=== PATIENT | male | born 1975 | race Caucasian/White ===

== ENCOUNTER 2019-10-12 09:28 | Emergency (ER) | payer OTHER, SELFPAY ==
[2019-10-12 09:37] VITALS: BP 121/89; PULSE 95; RESP 16; TEMP 36.2; O2SAT 100
--- NOTE | 2019-10-12 09:56 | ED.URI ---
HPI - URI/Sore Throat General Chief Complaint: Upper Respiratory Infection Stated Complaint: cough/chest congestion/fever Time Seen by Provider: 10/12/19 09:50 Source: patient Mode of arrival: ambulatory Limitations: no limitations History of Present Illness HPI Narrative: Sukhi Blanchard is a 44 yo male with a PMH of cluster migraines who comes to express care complaining of cold symptoms including head congestion cough increasing nasal congestion and low-grade fever last night. States he is taken NyQuil and DayQuil with no improvement Related Data Home Medications Medication Instructions Recorded Confirmed amitriptyline 10/12/19 galcanezumab-gnlm [Emgality Pen] mg SUBCUT 10/12/19 hydrocortisone acetate mg ID 10/12/19 hydrocortisone-pramoxine applic 10/12/19 rizatriptan mg 10/12/19 Allergies Allergy/AdvReac Type Severity Reaction Status Date / Time Cephalosporins Allergy Mild Verified 05/09/12 16:32 clavulanic acid Allergy Mild Verified 05/09/12 16:32 Penicillins Allergy Mild Verified 05/09/12 16:32 BETALACTAMASEIN Allergy Mild Uncoded 12/11/08 14:17 ERYTHROMYCINS Allergy Mild Uncoded 12/11/08 14:17 Review of Systems Review of Systems: Narrative: CONSTITUTIONAL: Denies fever, chills, sweats. EYES: Denies visual changes, redness, discharge. ENT: Has cough, congestion, rhinorrhea, no otalgia OVASCULAR: Denies chest pain, palpitations, edema. RESPIRATORY: Denies dyspnea, wheezing, cough GASTROINTESTINAL: Denies abdominal pain, nausea, vomiting, diarrhea. GENITOURINARY: Denies dysuria, hematuria, abnormal discharge SKIN: Denies rash or itching. MUSCULOSKELETAL: Denies acute back pain, joint pain, or myalgia. NEUROLOGIC: Denies numbness, or focal weakness. PSYCHIATRIC: Denies anxiety or depression. [facility] Family History Family History (Updated 10/12/19 @ 10:00 by Autumn Farr CNP) Other No active medical problems Social History Social History (Updated 10/12/19 @ 10:01 by Autumn Farr CNP) Smoking status: Never smoker Exam Narrative: Exam Narrative: GENERAL: This is a well-nourished, well-developed patient, in mild distress. HEAD: normocephalic, atraumatic. EYES: Sclera clear/white. Vision is grossly intact. EARS: External ears normal, auditory canals clear and without drainage, TMs normal without perforation. Hearing grossly intact. NOSE: External nose normal with nasal discharge, nares with redness, has rhinorrhea. THROAT: Mucous membranes moist, posterior pharynx erythema NECK: Neck supple, non-tender without lymphadenopathy, CARDIOVASCULAR: Regular rate and rhythm without murmurs, gallops, or rubs. RESPIRATORY: Clear to auscultation. Breath sounds equal bilaterally. No wheezes, rales, or rhonchi. GASTROINTESTINAL: Abdomen soft, non-tender, nondistended. Bowel sounds are active. No hepato-splenomegaly, or palpable masses. No guarding. SKIN: warm, intact with no suspicious lesions or rash, good texture and turgor. NEURO: awake, alert, and oriented to person, place and time. There were no obvious focal neurologic abnormalities. Steady gait EXTREMITIES: Normal range of motion. No edema. BACK: Nontender without deformity Course Course Emergency Course: Flu swab negative Started on prednisone codeine cough syrup and Mucinex; already using Claritin and Zyrtec Vital Signs Vital signs: Vital Signs Temperature 97.1 F L 10/12/19 09:37 Pulse Rate 95 10/12/19 09:37 Respiratory Rate 16 10/12/19 09:37 Blood Pressure 121/89 10/12/19 09:37 Pulse Oximetry 100 10/12/19 09:37 Temperature 97.1 F L 10/12/19 09:37 Pulse Rate 95 10/12/19 09:37 Respiratory Rate 16 10/12/19 09:37 Blood Pressure 121/89 10/12/19 09:37 Pulse Oximetry 100 10/12/19 09:37 MDM - URI/Sore Throat Differential Diagnosis Differential diagnosis: Likely upper respiratory infection, sinusitis and influenza Discharge Plan Discharge Clinical Impression: Upper respiratory infection
== END 2019-10-12 10:14 | disposition home or self-care (01) ==
PROVIDERS: Emergency Provider Nurse Practitioner; PCP Physician Assistant
DX: J06.9 Acute upper respiratory infection, unspecified (principal)
CPT/HCPCS: 87804; 99213; G0463

== ENCOUNTER 2020-06-27 07:54 | Emergency (ER) | payer OTHER, SELFPAY ==
[2020-06-27] VITALS (58 sets, daily range): BP systolic 121–178; BP diastolic 66–103; PULSE 67–98; RESP 12–24; TEMP 36.7; O2SAT 96–100
--- NOTE | ~2020-06-27 | XR_ITS ---
XR chest 2V DATE: 06/27/2020 09:00 INDICATION: Left-sided chest pain, pressure. History of heart murmur. TECHNIQUE: PA and lateral views COMPARISON: None FINDINGS: No pulmonary infiltrate or consolidation, pleural effusion or pulmonary vascular congestion or pneumothorax. Normal heart size. No hilar or mediastinal enlargement. IMPRESSION: No active cardiopulmonary disease Reviewed, dictated and finalized at location A.
--- NOTE | 2020-06-27 07:56 | ECG_ITS ---
Measurements Intervals [place] Rate: 89 P: 16 IA: 143 QRS: -31 QRSD: 117 T: 27 QT: 345 QTc: 420 Interpretive Statements SINUS RHYTHM LEFT AXIS DEVIATION INTRAVENTRICULAR CONDUCTION DELAY BORDERLINE R WAVE PROGRESSION, ANTERIOR LEADS NONSPECIFIC T-WAVE ABNORMALITY- INFERIOR LEADS BASELINE ARTIFACT- I, III, AVR, AVL, AVF BORDERLINE ECG Electronically Signed On 06-27-2020 12:48:11 CDT by Deandre Ugarte D.O.
[2020-06-27 08:25] LABS: Basophils Absolute Auto 0.1 K/mm3 (0.0-0.1); Basophils Percent Auto 0.7 % (0.2-1.2); Eosinophils Absolute Auto 0.2 K/mm3 (0-0.3); Eosinophils Percent Auto 2.8 % (0-4.4); Hematocrit 45.9 % (42.0-52.0); Hemoglobin 14.6 g/dL (14.0-18.0); Immature Granulocyte Absolute 0.03 K/mm3 (0.00-0.031); Immature Granulocyte Percent A 0.4 % (0-0.5); Lymphocytes Absolute Auto 1.64 K/mm3 (0.9-3.2); Lymphocytes Percent Auto 23.8 % (18.3-44.2); Mean Corpuscular HGB Conc 31.8 g/dl (32-36); Mean Corpuscular Hemoglobin 27.2 pg (26-34); Mean Corpuscular Volume 85.5 fl (80-100); Mean Platelet Volume 9.5 fl (7.4-10.4); Monocytes Absolute Auto 0.5 K/mm3 (0.1-0.6); Monocytes Percent Auto 7.6 % (2.6-8.5); Neutrophils Absolute Auto 4.5 K/mm3 (1.3-6.7); Neutrophils Percent Auto 64.7 % (45.5-73.1); Platelet Count Result 273 k/mm3 (150-375); Red Blood Count 5.37 M/mm3 (4.6-6.20); Red Cell Distribution Width 15.1 % (11.5-14.5); White Blood Count 6.9 K/mm3 (4.5-10.0)
[2020-06-27 08:34] LABS: INR 1.1; Prothrombin Time 13.5 Seconds (11.1-14.7)
[2020-06-27 08:36] LABS: Anion Gap 9 mmol/L (8-16); Blood Urea Nitrogen 17 mg/dL (9-20); Calcium 9.1 mg/dL (8.4-10.2); Carbon Dioxide 31 mmol/L (22-30); Chloride 101 mmol/L (98-107); Estimated CRCL calculation 93 ml/min; Estimated Glomerular Filt Rate > 60; Glucose 129 mg/dL (75-110); Potassium 4.2 mmol/L (3.4-5.0); Sodium 141 mmol/L (137-145)
[2020-06-27 08:40] LABS: D Dimer 0.27 ug/mL (<0.48)
--- NOTE | 2020-06-27 08:42 | ED.CHESTPAIN ---
HPI - Chest Pain General Chief Complaint: Chest Pain Stated Complaint: Chest Pain Time Seen by Provider: 06/27/20 08:07 Source: patient Mode of arrival: ambulatory Limitations: no limitations History of Present Illness HPI narrative: 45 years old white male presents with left chest pain noticed at 5 AM after waking up from sleep. 7 out of 10. Currently 5 out of 10 Patient denies any aggravating or relieving factors, also denies any similar symptoms. Patient denies any fever, chills, nausea, vomiting, shortness of breath, back pain, headache, sore throat, exposure to anybody with COVID-19. Patient have insignificant past medical history, does not take medications at home. Patient does not smoke or drink or uses drugs. He reports some stress. Related Data Home Medications Medication Instructions Recorded Confirmed amitriptyline 10/12/19 galcanezumab-gnlm [Emgality Pen] mg SUBCUT 10/12/19 Allergies Allergy/AdvReac Type Severity Reaction Status Date / Time Cephalosporins Allergy Mild Verified 05/09/12 16:32 clavulanic acid Allergy Mild Verified 05/09/12 16:32 Penicillins Allergy Mild Verified 05/09/12 16:32 Macrolide Antibiotics Allergy Unknown Verified 06/27/20 07:58 BETALACTAMASEIN Allergy Mild Uncoded 12/11/08 14:17 ERYTHROMYCINS Allergy Mild Uncoded 12/11/08 14:17 Review of Systems Review of Systems: Narrative: CONSTITUTIONAL: Denies fever, chills, or sweats. EYES: Denies visual changes, redness, or discharge. ENT: Denies rhinorrhea, congestion, sore throat, or otalgia. CARDIOVASCULAR: Denies chest pain, palpitations, or edema. RESPIRATORY: Denies cough or dyspnea. GASTROINTESTINAL: Denies abdominal pain, nausea, vomiting, or diarrhea. GENITOURINARY: Denies dysuria or hematuria. SKIN: Denies rash or itching. MUSCULOSKELETAL: Denies back pain, joint pain, or myalgia. NEUROLOGIC: Denies headache, numbness, or weakness. PSYCHIATRIC: Denies anxiety or depression. [facility] Family History Family History Other No active medical problems Social History Social History Smoking status: Never smoker Exam Narrative: Exam Narrative: General appearance: Well-developed, well-nourished Skin: Normal color Head: Normocephalic, nontraumatic Eyes: Clear conjunctiva ENT: Oropharynx normal, ears normal, nose normal Neck: Supple, nontender Chest and respiratory: Airway patent, no respiratory distress, no accessory muscle use Heart: Regular rate/rhythm Abdomen: Soft, nontender, no organomegaly, quiet bowel sounds Vascular: Normal peripheral pulses, normal capillary refill. Musculoskeletal: Normal range of motion, nontender back Neurologic: Alert and oriented ?3, [employer] is normal as tested, no gross motor deficit Course Vital Signs Vital signs: Vital Signs Temperature 36.7 C 06/27/20 07:58 Pulse Rate 95 06/27/20 07:58 Respiratory Rate 14 06/27/20 07:58 Blood Pressure 178/103 H 06/27/20 07:58 Pulse Oximetry 99 06/27/20 07:58 Temperature 36.7 C 06/27/20 07:58 Pulse Rate 90 06/27/20 12:31 Respiratory Rate 20 06/27/20 12:31 Blood Pressure 121/98 H 06/27/20 12:31 Pulse Oximetry 100 06/27/20 12:31 MDM - Chest Pain MDM Narrative Medical decision making narrative: Patient presents with left chest pain noticed after waking up from sleep this morning. Labs, chest x-ray, D-dimer EKG ordered. Cardiac score is 1, Chest x-ray showed no acute abnormality, EKG showed no acute abnormality. D-dimer within normal limits Blood work-up within normal limit. Patient probably have chest pain could be musculoskeletal could
[2020-06-27 08:47] LABS: Troponin I < 0.012 ng/mL (0.000-0.034)
[2020-06-27 08:51] LABS: Alanine Aminotransferase 47 U/L (4-50); Albumin Level 4.4 g/dL (3.5-5.1); Alkaline Phosphatase 80 U/L (38-126); Aspartate Amino Transferase 41 U/L (17-59); Bilirubin,Total 0.7 mg/dL (0.2-1.3)
[2020-06-27 11:08] LABS: Troponin I < 0.012 ng/mL (0.000-0.034)
== END 2020-06-27 15:39 | disposition home or self-care (01) ==
PROVIDERS: Emergency Provider Emergency Medicine; PCP Physician Assistant
DX: R07.9 Chest pain, unspecified (principal); I45.9 Conduction disorder, unspecified; R94.31 Abnormal electrocardiogram [ECG] [EKG]
CPT/HCPCS: 36415; 71046; 80048; 80076; 84484; 85025; 85380; 85610; 85730; 93005; 99284

== ENCOUNTER 2024-08-26 21:49 | Emergency (ER) | payer OTHER, SELFPAY ==
[2024-08-26 21:56] VITALS: BP 151/102; PULSE 89; RESP 18; TEMP 36.8; O2SAT 99
--- NOTE | 2024-08-26 22:37 | ED.EYEPROB ---
HPI - Eye Problem General Chief complaint: Eye Problems Stated complaint: R eye pain and wanting relief for covid pain Time Seen by Provider: 08/26/24 22:21 Source: patient Mode of arrival: ambulatory Limitations: no limitations History of Present Illness HPI Narrative: This is a 49-year-old male who presents to the ED for chief complaint of bilateral eye irritation and drainage. States he was diagnosed with COVID 4 days ago. He is having body aches. He also reports increased congestion for which he is taking Sudafed. Reports dry cough. He is seeking relief for the body aches and eye irritation. Related Data Home Medications ?Medication ?Instructions ?Recorded ?Confirmed ?Last Taken ?Type amitriptyline 25 mg tablet 10/12/19 Unknown History galcanezumab-gnlm 120 mg/mL mg subcut 10/12/19 Unknown History subcutaneous pen injector (Emgality Pen) Allergies Allergy/AdvReac Type Severity Reaction Status Date / Time Cephalosporins Allergy Mild Verified 05/09/12 16:32 clavulanic acid Allergy Mild Verified 05/09/12 16:32 Penicillins Allergy Mild Verified 05/09/12 16:32 Macrolide Antibiotics Allergy Unknown Verified 06/27/20 07:58 BETALACTAMASEIN Allergy Mild Uncoded 12/11/08 14:17 ERYTHROMYCINS Allergy Mild Uncoded 12/11/08 14:17 Review of Systems Review of Systems: All systems as dictated in [facility] Family History Family History Other No active medical problems Social History Social History Smoking status: Never smoker Exam Narrative: GENERAL: Well-appearing, well-nourished, and in no acute distress. HEAD: Normocephalic, atraumatic. EYES: PERRLA and EOMI. Bilateral conjunctival injection. There is purulent drainage bilaterally. ENT: Nares clear, no rhinorrhea or epistaxis. Mucous membranes moist. Oropharynx without tonsillar hypertrophy exudate or other lesions. NECK: Supple. No adenopathy or masses. CHEST: No respiratory distress. Clear to auscultation. No wheezes rales or rhonchi HEART: Regular rate and rhythm. No murmur heard. Normal peripheral pulses. ABDOMEN: Soft, nontender, nondistended, normal active bowel sounds. MSK: Normal range of motion. No edema. SKIN: Warm, dry, no rash. NEURO: Alert and oriented x4. No focal deficits. PSYCH: Normal mood and affect. Course Vital Signs Vital signs: Vital Signs Temperature 98.2 F 08/26/24 21:56 Pulse Rate 89 08/26/24 21:56 Respiratory Rate 18 08/26/24 21:56 Blood Pressure 151/102 H 08/26/24 21:56 Pulse Oximetry 99 08/26/24 21:56 Oxygen Delivery Room Air 08/26/24 21:56 Temperature 98.2 F 08/26/24 21:56 Pulse Rate 89 08/26/24 21:56 Respiratory Rate 18 08/26/24 21:56 Blood Pressure 151/102 H 08/26/24 21:56 Pulse Oximetry 99 08/26/24 21:56 Oxygen Delivery Room Air 08/26/24 21:56 MDM - Eye Problem MDM Narrative Medical decision making narrative: This is a 49-year-old male who presents to the ED for chief complaint of bilateral eye irritation with recent COVID diagnosis. Vitals are normal. Exam remarkable for the above. Patient was given Ocuflox drops for conjunctivitis. Patient will be discharged in stable condition. Supportive measures discussed and return precautions given. Patient is understanding and agreeable with plan for discharge with PCP follow-up. Discharge Plan Discharge Clinical Impression: Conjunctivitis Patient Disposition: Home, Self-Care Condition: Stable Instructions: Antibiotic Form Additional Instructions: Your seen in the ER today for conjunctivitis. Please take Tylenol and ibuprofen for body aches. Use antibiotic drops for the conjunctivitis. If you have any new or worsening symptoms please return to the ER for further evaluation. Patient Language: Cook Islander Prescriptions: New ofloxacin [Ocuflox] 0.3 % drops See Rx Instructions .ROUTE .COMPLEX Qty: 5 0RF Rx Instructions: put 1-2 drps into affected eye(s) every 2-4 h x 2 days, then 1-2 drps 4 times/day days 3-7 Artificial Tears (cmc) 1 % drops 1 drp EACH EYE TID Qty: 15 0RF No Action amitriptyline 25 mg tablet Emgality Pen 120 mg/mL pen injector SUBCUT Follow-up/Referrals: Pedro,ANJALI Aponte [Primary Care Provider] - Time of Disposition: 22:54
[2024-08-26] MEDS: OFLOXACIN 0.3% OPHTH SOLN 5 ML BTL 1 DROP EACH EYE (23:11)
== END 2024-08-26 23:17 | disposition home or self-care (01) ==
PROVIDERS: Emergency Provider Physician Assistant; PCP Physician Assistant
DX: H10.9 Unspecified conjunctivitis (principal)
CPT/HCPCS: 99283; A9270

== ENCOUNTER 2024-08-30 17:12 | Emergency (ER) | payer OTHER, SELFPAY ==
[2024-08-30 17:25] VITALS: BP 146/88; PULSE 74; RESP 20; TEMP 36.6; O2SAT 99
--- NOTE | 2024-08-30 17:38 | ED_ITS ---
HPI - URI/Sore Throat General Chief Complaint: Upper Respiratory Infection Stated Complaint: cough,chest tightness,unable to sleep 08/23 COVID+ Time Seen by Provider: 08/30/24 17:15 Source: patient Mode of arrival: ambulatory Limitations: no limitations History of Present Illness HPI Narrative: Patient is a 49-year-old male who presents with cough and chest tightness and decreased ability to sleep due to being diagnosed with COVID 08/23. Patient has been taking [id number] medication with no relief. Denies any fever, chills, nausea, vomiting, diarrhea, sore throat, congestion, ear pain. Related Data Home Medications ?Medication ?Instructions ?Recorded ?Confirmed ?Last Taken ?Type amitriptyline 25 mg tablet 25 mg PO TID 10/12/19 08/30/24 Unknown History galcanezumab-gnlm 120 mg/mL mg subcut 10/12/19 Unknown History subcutaneous pen injector (Emgality Pen) almotriptan malate 12.5 mg tablet mg 08/30/24 Unknown History dapagliflozin propanediol 10 mg mg 08/30/24 Unknown History tablet (Farxiga) erenumab-aooe 140 mg/mL mg subcut 08/30/24 Unknown History subcutaneous auto-injector (Aimovig Autoinjector) lisinopril 2.5 mg tablet mg 08/30/24 Unknown History omeprazole 20 mg capsule,delayed mg 08/30/24 Unknown History release rosuvastatin 10 mg tablet mg 08/30/24 Unknown History semaglutide 14 mg tablet (Rybelsus) mg PO 08/30/24 Unknown History ubrogepant 50 mg tablet (Ubrelvy) mg 08/30/24 Unknown History Allergies Allergy/AdvReac Type Severity Reaction Status Date / Time Cephalosporins Allergy Mild Unknown Verified 08/30/24 17:23 clavulanic acid Allergy Mild Unknown Verified 08/30/24 17:23 Penicillins Allergy Mild Unknown Verified 08/30/24 17:23 Macrolide Antibiotics Allergy Unknown Unknown Verified 08/30/24 17:23 ERYTHROMYCINS Allergy Mild Unknown Uncoded 08/30/24 17:23 BETALACTAMASEIN Allergy Unknown Unknown Uncoded 08/30/24 17:23 Review of Systems Review of Systems: All systems reviewed & are unremarkable except as noted in HPI and below Constitutional: Constitutional: Denies body ache(s), Denies chills, Denies fatigue, Denies fever(s), Denies headache(s), Denies malaise and Denies weakness Eyes: Eyes: Denies blurry vision, Denies itchy eyes and Denies loss of vision ENT: Denies otalgia, Denies headache(s), Denies nasal congestion, Denies sinus pain and Denies sore throat Cardiovascular: Cardiovascular: Denies chest pain, Denies irregular heart rhythm and Denies dyspnea Respiratory: Respiratory: Reports chest congestion, Reports cough and Denies dyspnea Gastrointestinal: Gastrointestinal: Denies abdominal pain, Denies diarrhea, Denies nausea and Denies vomiting Musculoskeletal: Musculoskeletal: Denies back pain, Denies myalgias and Denies arthralgias Integumentary/Breasts: Skin/Breast: Denies pruritus and Denies rash Neurologic: Denies headache(s), Denies loss of vision and Denies weakness Psychiatric: Psychiatric: Reports no additional psychiatric complaints Endocrine: Endocrine: Denies fatigue Allergic/Immunologic: Allergic/Immunologic: Denies itchy eyes PMFSH Family History Family History Other No active medical problems Social History Social History Smoking status: Never smoker Comments At time of signature, agree with nursing past medical, surgical, social and family history. There is no relevant family history pertinent to the presenting complaint. Exam Const: General: cooperative, healthy appearing, comfortable, no acute distress and well nourished Nutritional Appearance: well nourished Orien tation/consciousness: patient oriented x3 Limitations: no limitations HENMT: Head: normal to inspection, normocephalic and atraumatic Ears: hearing grossly normal bilaterally, external ears normal, TM's normal bilaterally, EAC's normal and no periauricular adenopathy Face/Nose/Sinus: Normal external nose present, Abnormal mucous membranes and turbinates present erythematous bilateral and diffuse, normal facial exam, sinuses nontender and face symmetric Face and sinus: normal facial exam, sinuses nontender and face symmetric Mouth: Yes Normal oral and palatal mucosa present, Yes lip normal, Yes tongue normal, Yes Normal salivary glands and ducts present, Yes oropharynx normal and Yes moist mucous membranes Teeth and gingiva: dentition normal Throat: posterior oropharynx normal, tonsils normal and uvula midline Eyes: General: appearance normal, both eyes and all related structures Alignment and Position: alignment normal and position normal Periorbital: periorbital findings normal Eyelids: eyelids normal Pupils: Equal, round and reactive pupils present Neck: Neck: normal visual inspection, full ROM, no lymphadenopathy and supple Chest: Chest palpation & inspection: normal inspection of the chest and normal palpation of entire chest wall Resp: Effort & Inspection: normal respiratory effort and able to speak in complete sentences Auscultation: clear to auscultation bilaterally, no crackles, no rales, no rhonchi and no wheezes Cardio: Rate: regular rate Rhythm: regular rhythm Heart sounds: S1 normal heart sound present and S2 normal heart sound present GI: Inspection: normal to inspection Skin: General skin exam: normal color and no rashes or lesions noted Neuro: General: patient oriented x3 and moves all extremities Cranial nerves: Yes Equal, round and reactive pupils present Speech: normal speech Gait exam (Neuro): Normal gait present Extrem: General: normal to inspection, full ROM and no edema Psych: Appearance: grossly normal and well kempt Mental Status: mental status grossly normal Speech and movement: Normal speech and movement present Affect: normal affect Attitude: cooperative Thought process: Normal thought process present Course Course Emergency Course: Discharge instructions reviewed with patient, as well as provided in writing per nursing staff. The instructions also include specific and strict return/GO TO THE ER as well as f/u information. All questions have been answered, and the patient deny any further questions with discharge and discharge plan. Portions of this record may have been created with voice recognition software Level of Care: Express Care Visit Vital Signs Vital signs: Vital Signs Temperature 36.6 C 08/30/24 17:25 Pulse Rate 74 08/30/24 17:25 Respiratory Rate 20 08/30/24 17:25 Blood Pressure 146/88 H 08/30/24 17:25 Pulse Oximetry 99 08/30/24 17:25 Oxygen Delivery Room Air 08/30/24 17:25 Temperature 36.6 C 08/30/24 17:25 Pulse Rate 74 08/30/24 17:25 Respiratory Rate 20 08/30/24 17:25 Blood Pressure 146/88 H 08/30/24 17:25 Pulse Oximetry 99 08/30/24 17:25 Oxygen Delivery Room Air 08/30/24 17:25 Reviewed MDM - URI/Sore Throat MDM Narrative Medical decision making narrative: Pt well hydrated appearing, in no respiratory distress, hemodynamically stable. Recommend supportive care. The patient is stable at time of discharge the clinical impression was discussed and the patient was given the opportunity to ask questions, which were addressed as completely as possible given the information available at present. Anticipatory guidance and return to care precautions were discussed and the importance of primary care follow-up was stressed and encouraged. The patient voiced understanding of the plan, indications to return, and the need for follow-up. Differential diagnosis considered: [place] virus, strep pharyngitis, allergic rhinitis, upper respiratory tract infection, sinusitis, rhinosinusitis, nasopharyngitis. viral pharyngitis, otitis media, otitis externa, otitis effusion, foreign body, cerumen impaction, viral syndrome, and influenza.? Exam findings show no acute concerns or changes; patient is non-toxic appearing and is in no distress.? Patient is appropriate for outpatient treatment and follow- up.? Medical Records Attestation: I reviewed the patient's medical records. Discharge Plan Discharge Clinical Impression: COVID Patient Disposition: Home, Self-Care Condition: Stable Instructions: COVID-19 (Coronavirus Disease 2019) (ED) Additional Instructions: Use Tessalon Perles as needed for cough. Use albuterol inhaler daily. Take steroids per Dosepak The following recommendations have been made by the CDC and local Health Departments, regarding COVID-19: -wear a mask for 5 days, as long as your fever free for 24 hours you could return to work -Majority of mild to moderate cases can be treated at home, without hospitalization or prescription medications You do not need a negative test result to return to work/school, assuming the above recommendations have been met and you are not symptomatic. Treating symptoms for mild to moderate cases may include: -Alternate Tylenol and Motrin per package directions for fever or pain. -Antihistamine medication such as Benadryl/Zyrtec at night and Claritin/Ann during the day can help improve symptoms. -Use Flonase twice a day for 5 days then daily to help reduce the inflammation and dry up your sinuses. -You can also use Sudafed behind the pharmacy counter(12 or 24 hour). Be sure to drink plenty of water with these medications at least 8 ounces with every dose and it is important to drink 8 to 10 glasses of water per day. Water is a natural decongestant Take Motrin alternating with Tylenol for pain and fever alternating every 3 hours. 8 AM: Tylenol 11 AM: Ibuprofen 2 PM: Tylenol 5 PM: Ibuprofen 8 PM: Tylenol 11 PM: Ibuprofen 2 AM: Tylenol 5 AM: Ibuprofen Common Adult Symptoms: Fever/chills Cough Shortness of breath Fatigue, muscle aches Headache Loss of taste/smell Sore throat, congestion, runny nose GI symptoms (nausea, vomiting, diarrhea) Common Pediatric Symptoms Cough Fever GI symptoms (diarrhea, upset stomach, nausea, vomiting) Symptoms may differ in severity however, most cases do not require hospi talization. WHEN TO SEEK ER EVALUATION/TREATMENT: Severe/persistent shortness of breath or difficulty breathing Elevated, persistent fevers without resolution with fever-reducing medications Chest pain Extreme fatigue/lethargy Complications of pre-existing disease Patient Language: Indonesian Prescriptions: New (DME) Aerochamber MV Spacer See Rx Instructions .Route Qty: 1 0RF Rx Instructions: As directed benzonatate 100 mg capsule 100 mg PO BID PRN (Reason: cough) Qty: 14 0RF methylprednisolone [Medrol (Aubrey)] 4 mg tablets,dose pack See Rx Instructions .ROUTE .COMPLEX Qty: 21 0RF Rx Instructions: orally per package directions albuterol sulfate 90 mcg/actuation HFA aerosol inhaler 2 puff inhalation QID PRN (Reason: shortness of breath or wheezing) Qty: 6.7 0RF No Action amitriptyline 25 mg tablet 25 mg PO TID Emgality Pen 120 mg/mL pen injector SUBCUT almotriptan malate 12.5 mg tablet omeprazole 20 mg capsule,delayed release(DR/EC) lisinopril 2.5 mg tablet rosuvastatin 10 mg tablet dapagliflozin propanediol [Farxiga] 10 mg tablet Aimovig Autoinjector 140 mg/mL auto-injector SUBCUT Rybelsus 14 mg tablet PO Ubrelvy 50 mg tablet ofloxacin [Ocuflox] 0.3 % drops See Rx Instructions .ROUTE .COMPLEX Qty: 5 0RF Rx Instructions: put 1-2 drps into affected eye(s) every 2-4 h x 2 days, then 1-2 drps 4 times/day days 3-7 Follow-up/Referrals: Pedro,ANJALI Aponte [Primary Care Provider] - 3 Days Stand Alone Forms: Work/School Release IP Time of Disposition: 18:23
== END 2024-08-30 18:30 | disposition home or self-care (01) ==
PROVIDERS: Emergency Provider Nurse Practitioner Family; PCP Physician Assistant
DX: U07.1 COVID-19 (principal)
CPT/HCPCS: 99213; G0463

== ENCOUNTER 2025-01-02 15:42 | Outpatient (CLI) | payer OTHER, SELFPAY ==
--- NOTE | ~2025-01-02 | CT_ITS ---
CLINICAL INDICATION: Left upper quadrant pain COMPARISON: 05/09/2012. TECHNIQUE: Multiple contiguous axial images of the abdomen and pelvis were performed following the ad ministration of with 100 mL Omnipaque-350 intravenous contrast The dose-length product (DLP) was 1489.48 mGy-cm. Automated exposure control and iterative reconstruction technique were employed. FINDINGS/OBSERVATIONS: Visualized lower thorax: Small left-sided pleural effusion The heart is of normal size, without pericardial effusion. Small hiatal hernia is present. Liver: The liver demonstrates homogeneous enhancement and is not enlarged. Gallbladder and biliary system: The gallbladder is only minimally distended, and otherwise unremarkable. Pancreas: The pancreas enhances homogeneously without ductal dilatation. Spleen: The spleen enhances homogeneously and is not enlarged. Kidneys: A 4 mm nonobstructing calculus is identified within the lower pole of the right kidney. The remainder of the bilateral kidneys otherwise enhance symmetrically without hydronephrosis or remy tional renal calculi. Adrenal glands: Unremarkable. Gastrointestinal tract: Fecal stasis within the colon. Appendix: The appendix is not definitively visualized. However, no pericecal inflammatory change is i dentified suggest the presence of acute appendicitis. Vasculature: Unremarkable. Lymph nodes: No pathologically enlarged or morphologically suspicious lymph nodes within the retroperitoneum or at the root of the mesentery. Pelvic structures: The bladder is only minimally distended, and otherwise unremarkable. The prostate gland is not enlarged. Body wall and musculoskeletal: Small fat-containing umbilical hernia. No significant degenerative disease within the lower thoracic or lumbosacral spine. IMPRESSION: Nonobstructing right renal calculus. Small left-sided pleural effusion, likely the source of patient's left upper quadrant pain. Reviewed, dictated and finalized at location A. IMPRESSION: Nonobstructing right renal calculus. Small left-sided pleural effusion, likely the source of patient's left upper qu adrant pain.
--- OUTSIDE RECORDS SUMMARY | 2025-01-02 15:47 | XMS_ITS | Encounter Summary ---
Author Organization [employer] Address [address] [place] [address] Care Team Providers Care Award Machine Operator Name Role Phone Sloan Davis MD Primary Care Provider [phone] Encounter Details Date Type Department Care Team (Late st Contact Info) Description 11/11/2008 Outpatient Historical [facility] AND Jitendra Jones MD [address] [facility] [address] 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
--- OUTSIDE RECORDS SUMMARY | 2025-01-02 15:47 | XMS_ITS | Encounter Summary ---
Author Organization [facility] Address [address] [facility] [address] [place] [address] Care Team Providers Care Casino Supervisor Name Role Phone Sloan Davis MD Primary Care Provide r Fay Vasquez Primary Care Provider [phone]- [phone] Cathleen Lacey Unavailable [phone] Encounter Details Date Type Department Care Team (Late st Contact Info) Description 02/09/2013 Orders Only [facility] Health Information Management [address] [place] [address] Scanning, Provider Social History Tobacco Use Types Packs/Day Years Used Date Smoking Tobacco: Never Assessed Sex and Gender Information Value Date Recorded Sex Assigned at Not on file Legal Sex Male 8:22 AM OBSTETRICS SPECIALIST Gender Identity Not on file Sexual Orientation Straight 09/24/2020 8: 59 PM OBSTETRICS SPECIALIST documented as of this encounter Plan of Treatment Not on file documented as of this encounter Procedures Procedure Name Priority Date/Time Associated Diagnosis Comments GI - RESULT 02/09/2013 documented in this encounter Results * GI - RESULT (02/09/2013) Anatomical Region Laterality Modality Other us Provider Scanning Final Result documented in this encounter Visit Diagnoses Not on filedocumented in this encounter Additional Health Concerns Infection Onset Date Last Indicated Resolved Time COVID19 07/09/2020 07/09/202007/23/2020 3:07 AM OBSTETRICS SPECIALIST COVID: Recovered Comment:Added based on recent COVID infection. 07/23/2020 08/01/2020 11/20/2020 3:05 AM C DT COVID: Suspected 09/02/2021 09/02/2021 09/03/2021 6:31 AM OBSTETRICS SPECIALIST documented as of this encounter Care Teams Casino Supervisor Relationship Specialty Start Date End Date Sloan Davis MD [address] [place] [address] PCP - General 12/13/17 09/10/19 Fay Vasquze PA [address] [place] [address] PCP - General Internal Medicine 09/11/19 Cathleen Lacey PA [address] [place] [address] [address] [address] Physician Naval Designer Orthopedic Surgery 05/05/23 documented as of this encounter
--- OUTSIDE RECORDS SUMMARY | 2025-01-02 15:47 | XMS_ITS | Encounter Summary ---
Author Organization [facility] Facility Care Team Providers Care Dispatcher Service Or Work Name Role Phone Sloan Davis MD Primary Care Provide r Fay Vasquez Primary Care Provider [phone] Cathleen Lacey Unavailable [phone] Encounter Details Date Type Department Care Team (Latest Contact Info) Description 02/10/2018 Orders Only [facility] ProviderAntoinette MD [address] [place] [address] Social History Tobacco Use Types Packs/Day Years Used Date Smoking Tobacco: Never Smokeless Tobacco: Never Sex and Gender Information Value Date Recorded Sex Assigned at Not on file Legal Sex Male 8:22 AM HEALTH CARE ASSISTANT Gender Identity Not on file Sexual Orientation Straight 09/24/2020 8: 59 PM HEALTH CARE ASSISTANT documented as of this encounter Plan of Treatment Not on file documented as of this encounter Procedures Procedure Name Priority Date/Time Associated Diagnosis Comments COLONOSCOPY - SCAN 02/10/2018 12 :00 AM CDT documented in this encounter Results * COLONOSCOPY - SCAN (02/10/2018 12:00 AM CDT) Narrative 02/10/2018 12:00 AM CDT Ordered by an unspecified provider. Historical Provider Final Res ult documented in this encounter Visit Diagnoses Not on filedocumented in this encounter Additional Health Concerns Infection Onset Date Last Indicated Resolved Time COVID19 07/09/2020 07/09/2020 07/23/2020 3:07 AM HEALTH CARE ASSISTANT COVID: Recovered Comment:Added based on recent COVID infection. 07/23/2020 08/01/2020 11/20/2020 3:05 AM C DT COVID: Suspected 09/02/2021 09/02/2021 09/03/2021 6:31 AM HEALTH CARE ASSISTANT documented as of this encounter Care Teams Dispatcher Service Or Work Relationship Specialty Start Date End Date Sloan Davis MD [address] [place] [address] PCP - General 12/13/17 09/10/19 Fay Vasquez PA [address] [place] [address] PCP - General Internal Medicine 09/11/19 Cathleen Lacey PA [address] [place] [address] [address] [place] [address] Physician Big Machine Consultant Orthopedic Surgery 05/05/23 documented as of this encounter
--- OUTSIDE RECORDS SUMMARY | 2025-01-02 15:47 | XMS_ITS | Encounter Summary ---
Author Organization [employer] Address 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
--- OUTSIDE RECORDS SUMMARY | 2025-01-02 15:47 | XMS_ITS | Encounter Summary ---
Author Organization [employer] Address [address] [place] [address] Care Team Providers Care Contact Center Manager Name Role Phone Sloan Davis MD Primary Care Provider [phone]- [phone] Encounter Details Date Type Department Care Team (Late st Contact Info) Description 06/25/2005 Outpatient Historical [facility] Momo Galeas DO [address] [place] [address] Er, Authorized P NO ADDRESS ON FILE OPEN WOUND OF FINGER (Primary Dx) Social History Tobacco Use Types Packs/Day Years Used Date Smoking Tobacco: Never Assessed Sex and Gender Information Value Date Recorded Sex Assigned at Not on file Legal Sex Male 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
--- OUTSIDE RECORDS SUMMARY | 2025-01-02 15:47 | XMS_ITS | Encounter Summary ---
Author Organization [facility] Address [address] [facility] [place] [address] Care Team Providers Care Rheumatology Nurse Name Role Phone Unavailable Primary Care Provider Unavailabl e Encounter Details Date Type Department Care Team (Late st Contact Info) Description 11/12/2019 Lab Requisition [facility] [address] [place] [phone] Maria M Cooper MD [address] [place] [address] Social History Tobacco Use Types Packs/Day Years Used Date Smoking Tobacco: Never Assessed Sex and Gender Information Value Date Recorded Sex Assigned at Not on file Legal Sex Male 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 DEVELOPMENT ENGINEER Gender Identity Not on file Sexual Orientation Not on file documented as of this encounter Plan of Treatment Not on file documented as of this encounter Procedures Procedure Name Priority Date/Time Associated Diagnosis Comments DERMATOPATHOLOGY Routine 11/09/2019 12:0 0 AM CDT documented in this encounter Results * DERMATOPATHOLOGY (11/09/2019 12:00 AM CDT) Case Report Dermatopathology Report Case: [id number] Authorizing Provider: Maria M Cooper MD Collected: 11/09/2019 12:00 AM Ordering Location: [facility] Received: 11/12/2019 08:42 AM Pathologist: Nighat Lofton MD Specimen: Skin, left cheek 0 3:00 PM CDT DERMATOPATHOLOGY LABORATORY Final Diagnosis Specimen A. SKIN, left cheek: SEBORRHEIC KERATOSIS (L82.1) CHRONIC PERIFOLLICULITIS (L73.8) POST-INFLAMMATORY PIGMENT ALTERATION (L81.9) (see microscopic description) 0 3:00 PM CDT DERMATOPATHOLOGY LABORATORY Clinical History Recurrent nevus. 0 3:00 PM CDT DERMATOPATHOLOGY LABORATORY Gross Description Specimen A: Received is one formalin filled container labeled with the patient's name and designated left cheek. The specimen consists of a punch measuring [id number], bisected. Jar 0. 0 3:00 PM CDT DERMATOPATHOLOGY LABORATORY Microscopic Description Specimen A. SKIN, left cheek: Sections show an acanthotic lesion composed of relatively uniform keratinocytes. There is hyperkeratosis and pseudo horn cysts formation. In addition, there is a perifollicular lymphohistiocytic infiltrate. Abundant melanin is present within melanophages around the superficial vascular plexus. No nevus is seen in the sections examined. 0 3:00 PM CDT DERMATOPATHOLOGY LABORATORY Disclaimer An external and internal positive and negative controls are appropriate for the histochemical, immunohistochemical and immunofluorescence stain(s) in this case (if any), except where stated explicitly. The performance characteristics of the stain(s) cited in this report were developed and its performance characteristic determined by the Dermatopathology Laboratory at [facility], directed by Dr. Rebekah Lofton. These tests need not be, and therefore are not, approved by the [place] Food and Drug Administration. The tests are used for clinical purposes. Billing Codes Specimen Charges Stain Charges 39945 1 0 3:00 PM CDT DERMATOPATHOLOGY LABORATORY Embedded Images 0 3:00 PM CDT DERMATOPATHOLOGY LABORATORY Pathology/Cytolog y TISSUE SPECIMEN FROM SKIN / Unknown 11/09/2019 11/12/2019 8:42 AM CDT us Maria M Cooper MD LAB - PATHOLOGY/CYTOLOGY O RDERABLES Final Result DERMATOPATHOLOGY LABORATORY [facility] - Department of Dermatology [address] [place] [address], [address] [place] [address], [facility] [phone] documented in this encounter Visit Diagnoses Not on filedocumented in this encounter
--- OUTSIDE RECORDS SUMMARY | 2025-01-02 15:47 | XMS_ITS | Clinical Summary ---
Author Organization [facility] Address [address] [place] [address] Care Team Providers Care Green Marketing Specialist Name Role Phone Fay Vasquez Primary Care Provider [phone] Cathleen Lacey Unavailable [phone] Allergies Active Allergy Reactions Criticality Noted Date Comments Amoxicillin-Pot Clavulanate Hives,Swelling Medium 11/27 Cefaclor Hives,Swelling Medium 12/11/2012 Erythromycin Hives,Swelling Medium 12/11/2012 Penicillins Rash Medium 05/26/2024 Medications cetirizine (ZyrTEC) 5 mg tablet Take 1 tablet (5 mg total) by mouth daily Active fluocinolone in oil (DermOtic) 0.01 % dropsIndications :Otitis Externa Eczema Administer 5 drops into each ear 2 (two) times a day As needed for itching 20 mL 2 4 Active Additional Information Patient not taking.Reported on 12/28/2024 almotriptan (AXERT) 12.5 mg tabletIndication s:Chronic migraine w/o aura w/o status migrainosus, not intractable TAKE 1 TABLET BY MOUTH NEEDED FOR MIGRAINE, MAY REPEAT IN 2 HOURS IF NEEDED; MAX 2 TABLETS IN 24 HOURS 12 tablet 3 4 Active amitriptyline (ELAVIL) 25 mg tabletIndication s:Vestibular migraine Take 3 tablets (75 mg total) by mouth nightly TAKE 3 TABLETS(75 MG) BY MOUTH EVERY NIGHT 90 tablet 11 4 06/19/20 25 Active erenumab-aooe (Aimovig Autoinjector) 140 mg/mL auto-injector Inject 1 mL (140 mg total) under the skin every 30 (thirty) days 1 mL 11 4 Active ubrogepant (Ubrelvy) 50 mg tabletIndication s:Chronic migraine w/o aura w/o status migrainosus, not intractable Take 1 tablet (50 mg total) by mouth once as needed for migraine May repeat dose once in 2 hours if no relief. Do not exceed 2 doses in 24 hours. 10 tablet 11 4 06/19/20 25 Active lisinopriL (PRINIVIL,ZESTRI L) 2.5 mg tablet Take 1 tablet (2.5 mg total) by mouth daily 90 tablet 1 5 Active semaglutide (Rybelsus) 14 mg tablet Take 1 tablet (14 mg total) by mouth greenhouse assistant before breakfast 90 tablet 1 5 Active dapagliflozin propanediol (FARXIGA) 10 mg tablet Take 1 tablet (10 mg total) by mouth daily 90 tablet 1 5 Active rosuvastatin (CRESTOR) 10 mg tablet Take 1 tablet (10 mg total) by mouth daily 90 tablet 1 5 Active omeprazole (PriLOSEC) 20 mg capsuleIndicatio ns:Gastroesophag eal reflux disease without esophagitis TAKE 1 CAPSULE(20 MG) BY MOUTH DAILY BEFORE BREAKFAST 30 capsule 3 5 Active Active Problems Problem Noted Date Diagnosed Date LUQ abdominal pain 01/02/2025 Assessment & Plan (01/02/2025 3:39 PM CDT): Presents with two distinct episodes of LUQ abdominal pain radiating to the back with associated left CVA tenderness and watery diarrhea. He is tender along the LLQ and LUQ and epigastric areas with referred pain going into the RLQ. Denies alcohol use and still has his gallbladder. No fevers, chills, nausea or anorexia. Differential diagnosis includes diverticulitis, pancreatitis from GLP-1 use, kidney stone (trace blood in his urine) or musculoskeletal cause. Will plan to get STAT CT scan of abdomen/pelvis. Left flank pain 01/02/2025 Assessment & Plan (01/02/2025 3:41 PM CDT): UA showed trace blood in urine. Will culture to evaluate for infection. LLQ pain 01/02/2025 Assessment & Plan (01/02/2025 3:40 PM CDT): Presents with two distinct episodes of LUQ abdominal pain radiating to the back with associated left CVA tenderness and watery diarrhea. He is tender along the LLQ and LUQ and epigastric areas with referred pain going into the RLQ. Denies alcohol use and still has his gallbladder. No fevers, chills, nausea or anorexia. Differential diagnosis includes diverticulitis, pancreatitis from GLP-1 use, kidney stone (trace blood in his urine) or musculoskeletal cause. Will plan to get STAT CT scan of abdomen/pelvis. Decreased hearing of both ears 11/02/2023 Assessment & Plan (11/02/2023 11:31 PM PROFESSOR IN FAMILY STUDIES): Patient has noted decreased hearing in both ears over the last few years. Currently has a little bit more popping. He has had multiple infections over the years and multiple sets of tubes as a child. Currently on Flonase and antihistamine and Mucinex on and off. Will go ahead and make a referral to ENT for further evaluation. Gastric intestinal metaplasia 10/13/2023 Assessment & Plan (12/28/2024 8:15 AM CDT): Noted on pathology from EGD biopsies August 2023. -Repeat EGD August 2026 for surveillance Assessment & Plan (10/13/2023 9:14 AM PROFESSOR IN FAMILY STUDIES): Noted on pathology from EGD biopsies August 2023. -schedule EGD August 2024 for surveillance -The risks (risks of bleeding, infection, perforation requiring surgery, missed polyps/cancer, dental injury, aspiration pneumonia, anesthesia complications such as drug reaction and cardiopulmonary complications including rare chance of ), benefits, and alternatives of the planned procedure were explained to the patient who understands and consents to having procedure done. BMI 40.0-44.9, adult 04/25/2023 Assessment & Plan (09/10/2024 5:05 PM PROFESSOR IN FAMILY STUDIES): Discussed the patient's BMI. The BMI is above average. BMI management plan is completed. BMI Follow-up includes: nutrition counseling, exercise counseling and education provided. Assessment & Plan (05/09/2024 2:48 PM CDT): Discussed the patient's BMI. The BMI is above average. BMI management plan is completed. BMI Follow-up includes: nutrition counseling, exercise counseling and education provided. Assessment & Plan (11/02/2023 11:30 PM PROFESSOR IN FAMILY STUDIES): Discussed the patient's BMI. The BMI is above average. BMI management plan is completed. BMI Follow-up includes: nutrition counseling, exercise counseling and education provided. Assessment & Plan (08/04/2023 11:36 PM PROFESSOR IN FAMILY STUDIES): Discussed the patient's BMI. The BMI is above average. BMI management plan is completed. BMI Follow-up includes: nutrition counseling, exercise counseling and education provided. Assessment & Plan (05/08/2023 8:47 PM CDT): Discussed the patient's BMI. The BMI is above average. BMI management plan is completed. BMI Follow-up includes: nutrition counseling, exercise counseling and education provided. Pain in finger of left hand 02/04/2023 Overview (02/04/2023): left ring finger Ganglion cyst 02/04/2023 Morbid obesity 10/26/2022 Assessment & Plan (09/10/2024 3:23 PM PROFESSOR IN FAMILY STUDIES): Discussed the patient's BMI. The BMI is above average. BMI management plan is completed. BMI Follow-up includes: nutrition counseling, exercise counseling and education provided. Assessment & Plan (05/09/2024 2:48 PM CDT): Discussed the patient's BMI. The BMI is above average. BMI management plan is completed. BMI Follow-up includes: nutrition counseling, exercise counseling and education provided. Assessment & Plan (11/02/2023 11:30 PM PROFESSOR IN FAMILY STUDIES): Discussed the patient's BMI. The BMI is above average. BMI management plan is completed. BMI Follow-up includes: nutrition counseling, exercise counseling and education provided. Assessment & Plan (08/04/2023 11:36 PM PROFESSOR IN FAMILY STUDIES): Discussed the patient's BMI. The BMI is above average. BMI management plan is completed. BMI Follow-up includes: nutrition counseling, exercise counseling and education provided. Assessment & Plan (05/08/2023 8:49 PM CDT): Discussed the patient's BMI. The BMI is above average. BMI management plan is completed. BMI Follow-up includes: nutrition counseling, exercise counseling and education provided. Assessment & Plan (10/30/2022 5:15 PM PROFESSOR IN FAMILY STUDIES): Discussed the patient's BMI. The BMI is above average. BMI management plan is completed. BMI Follow-up includes: nutrition counseling, exercise counseling and education provided. Patient has an obesity-related condition (not limited to: hypertension, obstructive sleep apnea, osteoarthritis, hyperlipidemia, diabetes, etc.). Therefore, morbid obesity may be documented for patients with a BMI between 35.00-39.99. BMI 38.0-38.9,adult 10/26/2022 Assessment & Plan (01/02/2025 1:23 PM CDT): Discussed the patient's BMI. The BMI is above average. BMI management plan is completed. BMI Follow-up includes: nutrition counseling, exercise counseling and education provided. Assessment & Plan (10/26/2022 3:45 PM PROFESSOR IN FAMILY STUDIES): Discussed the patient's BMI. The BMI is above average. BMI management plan is completed. BMI Follow-up includes: nutrition counseling, exercise counseling and education provided. Gastroesophageal reflux disease without esophagi tis 10/25/2022 Assessment & Plan (12/28/2024 8:15 AM CDT): Chronic GERD for over 10 years, takes Pepcid OTC, however symptoms are getting progressively worse over the past few months. EGD August 2023 with irregular Z- line and gastritis. Started on omeprazole 20 mg p.o. daily and symptoms resolved. -continue omeprazole 20 mg p.o. daily -Pepcid OTC p.r.n. -RECOMMENDATIONS given include: anti-reflux maneuvers, Avoid acidic foods like oranges and tomatoes., avoidance of spicy foods, avoid eating 3-4 hours before bed, elevation of the head of the bed, and weight loss Assessment & Plan (09/10/2024 5:03 PM PROFESSOR IN FAMILY STUDIES): Continue PPI p.r.n. Assessment & Plan (11/02/2023 11:30 PM PROFESSOR IN FAMILY STUDIES): Continue PPI p.r.n. Assessment & Plan (10/13/2023 9:15 AM PROFESSOR IN FAMILY STUDIES): Chronic GERD for over 10 years, takes Pepcid OTC, however symptoms are getting progressively worse over the past few months. EGD August 2023 with irregular Z- line and gastritis. Started on omeprazole 20 mg p.o. daily and symptoms resolved. -continue omeprazole 20 mg p.o. daily -Pepcid OTC p.r.n. -RECOMMENDATIONS given include: anti-reflux maneuvers, Avoid acidic foods like oranges and tomatoes., avoidance of spicy foods, avoid eating 3-4 hours before bed, elevation of the head of the bed, and weight loss Assessment & Plan (10/25/2022 1:45 PM PROFESSOR IN FAMILY STUDIES): Chronic GERD for over 10 years, takes Pepcid OTC, however symptoms are getting progressively worse over the past few months. -start omeprazole 20 mg p.o. daily -continue Pepcid OTC p.r.n. q.h.s. -RECOMMENDATIONS given include: anti-reflux maneuvers, Avoid acidic foods like oranges and tomatoes., avoidance of spicy foods, avoid eating 3-4 hours before bed, elevation of the head of the bed, and weight loss -schedule EGD -The risks (risks of bleeding, infection, perforation requiring surgery, missed polyps/cancer, dental injury, aspiration pneumonia, anesthesia complications such as drug reaction and cardiopulmonary complications including rare chance of ), benefits, and alternatives of the planned procedure were explained to the patient who understands and consents to having procedure done. Family history of colonic polyps 10/25/2022 Assessment & Plan (12/28/2024 8:16 AM CDT): Patient's mother had a large benign polyp requiring surgical resection. Patient's paternal aunt had colon cancer. Assessment & Plan (10/13/2023 9:06 AM PROFESSOR IN FAMILY STUDIES): Patient's mother had a large benign polyp requiring surgical resection. Patient's paternal aunt had colon cancer. Assessment & Plan (10/25/2022 1:45 PM PROFESSOR IN FAMILY STUDIES): Patient's mother had a large benign polyp requiring surgical resection. Patient's paternal aunt had colon cancer. Colon polyp 06/28/2022 Assessment & Plan (12/28/2024 8:15 AM CDT): Colonoscopy by Dr. Mark Ji in January 2018 with a 3 mm hyperplastic polyp in the rectum removed with cold snare, small internal hemorrhoids, otherwise unremarkable colonoscopy. Colonoscopy August 2023 incomplete to the ascending colon due to tortuosity, multiple tubular adenomas removed, diverticulosis, and internal hemorrhoids. Subsequent barium enema was unremarkable. -repeat colonoscopy August 2026 Assessment & Plan (11/02/2023 11:30 PM PROFESSOR IN FAMILY STUDIES): History of adenomas. Colonoscopy to be repeated in August of [address] Green Assessment & Plan (10/13/2023 9:10 AM PROFESSOR IN FAMILY STUDIES): Colonoscopy by Dr. Mark Ji in January 2018 with a 3 mm hyperplastic polyp in the rectum removed with cold snare, small internal hemorrhoids, otherwise unremarkable colonoscopy. Colonoscopy August 2023 incomplete to the ascending colon due to tortuosity, multiple tubular adenomas removed, diverticulosis, and internal hemorrhoids. Subsequent barium enema was unremarkable. -repeat colonoscopy August 2026 Assessment & Plan (10/30/2022 5:14 PM PROFESSOR IN FAMILY STUDIES): History of colon polyps. Has colonoscopy scheduled in February of [address] Green Assessment & Plan (10/25/2022 1:45 PM PROFESSOR IN FAMILY STUDIES): Last colonoscopy by Dr. Mark Ji in January 2018 with a 3 mm hyperplastic polyp in the rectum removed with cold snare, small internal hemorrhoids, otherwise unremarkable colonoscopy. Also had a colonoscopy in January of [address] Herbert with small internal hemorrhoids otherwise unremarkable. -schedule colonoscopy -The risks (risks of bleeding, infection, perforation requiring surgery, missed polyps/cancer, dental injury, aspiration pneumonia, anesthesia complications such as drug reaction and cardiopulmonary complications including rare chance of ), benefits, and alternatives of the planned procedure were explained to the patient who understands and consents to having procedure done. Assessment & Plan (06/28/2022 12:48 AM CDT): 01/2018 last colonoscopy. (Due 01/2023) Repeat 5 years as Family history. Refer to Dr. Green Elevated LFTs 11/11/2021 Assessment & Plan (11/11/2021 3:13 PM CDT): Elevated LFTs. Probably related to metabolic syndrome/fatty liver. Encouraged diet exercise Type 2 diabetes mellitus with hyperlipidemia 02/2022 Assessment & Plan (09/10/2024 5:04 PM PROFESSOR IN FAMILY STUDIES): Stressed importance of continued A1c control to minimize the intermediate accountant effects of diabetes. Bring accuchecks to office when instructed to do so. Check A1c about every 3-6 months. Take medication as prescribed. Get annual eye exam. Encouraged JUAN/Statin if able to tolerate. Encouraged weight control and encouraged diabetic diet and exercise. Encouraged patient to follow low fat/low chol diet like the Mediterranean diet. Increase good fats in the diet. Increase exercise. Monitor labs as needed. Continue Crestor 10 continue right Vang's is 14 and Farxiga 10. A1c has dropped into range at 7.4. Weight continues to come down. Continue with his good work and will reassess in 6 months with repeat labs and UA IRC. Assessment & Plan (05/13/2024 9:36 PM CDT): Stressed importance of continued A1c control to minimize the intermediate accountant effects of diabetes. Bring accuchecks to office when instructed to do so. Check A1c about every 3-6 months. Take medication as prescribed. Get annual eye exam. Encouraged JUAN/Statin if able to tolerate. Encouraged weight control and encouraged diabetic diet and exercise. Encouraged patient to follow low fat/low chol diet like the Mediterranean diet. Increase good fats in the diet. Increase exercise. Monitor labs as needed. A1c is still elevated. Continue the right Vang's is at 14. Add Farxiga 10 mg. This may also help with blood pressure. Recheck labs for CMP in about 4 weeks Continue statin Assessment & Plan (11/02/2023 11:30 PM PROFESSOR IN FAMILY STUDIES): Stressed importance of continued A1c control to minimize the intermediate accountant effects of diabetes. Bring accuchecks to office when instructed to do so. Check A1c about every 3-6 months. Take medication as prescribed. Get annual eye exam. Encouraged JUAN/Statin if able to tolerate. Encouraged weight control and encouraged diabetic diet and exercise. Encouraged patient to follow low fat/low chol diet like the Mediterranean diet. Increase good fats in the diet. Increase exercise. Monitor labs as needed. Continue [id number] and Crestor Assessment & Plan (05/08/2023 8:47 PM CDT): Stressed importance of continued A1c control to minimize the longterm effects of diabetes. Bring accuchecks to office when instructed to do so. Check A1c about every 3-6 months. Take medication as prescribed. Get annual eye exam. Encouraged JUAN/Statin if able to tolerate. Encouraged weight control and encouraged diabetic diet and exercise. Doing great with the Rybelsus 14 mg daily. Continue with statin Assessment & Plan (10/30/2022 5:16 PM PROFESSOR IN FAMILY STUDIES): Encouraged patient to follow low fat/low chol diet like the Mediterranean diet. Increase good fats in the diet. Increase exercise. Monitor labs as needed. Continue Crestor. Tolerating well. Continue Rybelsus 14. A1c is well controlled. He is also had success with weight loss when he initially started it but did have an increase since last visit. Encouraged to monitor diet and exercise. Patient has not been on an JUAN-inhibitor. His blood pressure is upper normal today. Will go ahead and start lisinopril at 2.5 mg daily. Will monitor his blood pressure and if we need to titrate up for blood pressure control we can currently will dose for renal protection. Assessment & Plan (06/28/2022 12:46 AM CDT): Encouraged patient to follow low fat/low chol diet like the Mediterranean diet. Increase good fats in the diet. Increase exercise. Monitor labs as needed. Start Crestor as patient will benefit with being a diabetic Assessment & Plan (02/21/2022 8:24 PM CDT): Stressed importance of continued A1c control to minimize the intermediate accountant effects of diabetes. Bring accuchecks to office when instructed to do so. Check A1c about every 3-6 months. Take medication as prescribed. Get annual eye exam. Encouraged JUAN/Statin if able to tolerate. Encouraged weight control and encouraged diabetic diet and exercise. Tolerating right Vang's is 14. Refills available. Continue weight loss effort. Continue to monitor closely. Patient's cholesterol was in a durable raised at therefore he prefers to not be on statin. His blood pressure is also stable and prefers to not be on a an JUAN-inhibitor at this time. Reviewed benefits with diabetes. Will continue to monitor Recheck labs in about 4 months. Assessment & Plan (11/11/2021 3:12 PM CDT): New Diagnosis Diabetes. Discussed with patient at length diabetes, pathogenesis, intermediate accountant sequela, end organ damage, diet/exercise/weight loss, and medication options for treatment. Reviewed A1c, normal values, goals of treatment and need to monitor about every 90 days until well regulated. Discussed importance of annual DM eye exams. Reviewed benefits of JUAN and Statin as a diabetic. Discussed how DM affects the kidney's and ways to monitor. Reviewed increased CV risk and importance of tight control. Reviewed foot care and need to wear shoes to check feet on a regular basis to avoid intermediate accountant problems. Offered referral to investigative reporter. Start Rybelsus 3 mg x 1 month increased to 7 mg. Coupon provided. Reviewed risks, benefit, alternatives, side effects and proper use. Follow-up in 3-4 months reassess A1c. Assessment & Plan (10/05/2021 8:50 PM PROFESSOR IN FAMILY STUDIES): Encouraged patient to follow fat/low chol diet like the Mediterranean diet. Increase good fats in the diet. Increase exercise. Monitor labs as needed. Fatigue 10/05/2021 Assessment & Plan (09/10/2024 5:04 PM PROFESSOR IN FAMILY STUDIES): Probably multifactorial. Check labs and followup to re-evaluate Assessment & Plan (06/28/2022 12:46 AM CDT): Probably multifactorial. Check labs and followup to re-evaluate Assessment & Plan (10/05/2021 8:50 PM PROFESSOR IN FAMILY STUDIES): Probably multifactorial. Check labs and followup to re-evaluate Congestion of upper airway 09/02/2021 Assessment & Plan (09/02/2021 11:31 AM PROFESSOR IN FAMILY STUDIES): Patient to presume positive COVID until results are available and self isolate for 10 days from the onset of sxs. Check COVID test thru [facility] collection site in [place]. If positive, complete quarantine and consider monoclonal antibodies. If negative, treat sxs and observe. Treat sxs with Tylenol, Cough/cold medication otc and add VitD 5,000IU daily and Zinc 50mg daily. Monitor sxs and call or go to the ER if has any of the following: --trouble breathing --persistent pain or pressure in the chest --new confusion --inability to wake or stay awake -- bluish lips or face If patient has been in close contact with anyone, they should be notified and instructed to quarantine per CDC guidelines for 14 days after last exposure to the positive COVID patient and monitor closely for symptoms of COVID. If they appear they should be tested. Close contact includes: --You were within 6 feet of someone who has COVID-19 for a total of 15 minutes or more --You provided care at home to someone who is sick with COVID-19 --You had direct physical contact with the person (hugged or kissed them) --You shared eating or drinking utensils --They sneezed, coughed, or somehow got respiratory droplets on you Additional Steps to avoid exposure/spread include: Avoid crowded places where close contact with others may occur, such as shopping centers, movie theaters, dormitories, or stadiums. Avoid transit where close contact with others may occur, such as planes, trains, and buses. Maintain a distance of approximately 6 feet from other people whenever possible (spacing out if you are in a line, leaving 2 seats in between others at a waiting room when possible). Wash your hands with soap and water often. If needed, use a hand commercial collections specialist that contains at least 60% alcohol. Clean and disinfect frequently touched surfaces such as tables, doorknobs, countertops, etc daily. Avoid touching your eyes, nose, and mouth when possible. Right lateral epicondylitis 07/24/2021 Assessment & Plan (05/08/2023 8:47 PM CDT): Patient has surgical intervention scheduled with Orthopedics. Assessment & Plan (11/11/2021 3:10 PM CDT): Patient has persistent right lateral epicondylitis pain recommend referral to Orthopedics for further evaluation Assessment & Plan (07/24/2021 6:03 PM PROFESSOR IN FAMILY STUDIES): Lateral right lateral epicondylitis by exam. Encouraged icing to the area. Start NSAID. Make it a forearm band to see if helps with the symptoms. If they persist may consider physical therapy versus orthopedic referral. Encouraged to try to avoid activities that reproduce the symptoms as that may be the underlying cause. Plantar fasciitis of right foot 01/22/2021 Assessment & Plan (01/22/2021 9:50 AM CDT): Symptoms are most consistent with plantar fasciitis. His symptoms currently are somewhat improved but reviewed with him that the exercise multiple times a day icing the area stretching will all continue to help it resolve. If it returns or persists may consider referral to pole peeling machine operator. He is in agreement. Stressed importance of good she use also. Cough 07/09/2020 Chest tightness 07/09/2020 Assessment & Plan (07/09/2020 3:15 PM PROFESSOR IN FAMILY STUDIES): Will order covid 19 testing on patient - he will report to [facility] today or tomorrow before 430pm for testing. He will continue to quarantine. He will use tylenol q6h prn fever/body aches. He will report to the er if worsening. We will notify him of covid 19 testing results as available. Acute intractable headache 07/09/2020 Assessment & Plan (07/09/2020 3:15 PM PROFESSOR IN FAMILY STUDIES): Will order covid 19 testing on patient - he will report to [facility] today or tomorrow before 430pm for testing. He will continue to quarantine. He will use tylenol q6h prn fever/body aches. He will report to the er if worsening. We will notify him of covid 19 testing results as available. Need for influenza vaccination 06/09/2020 Assessment & Plan (06/28/2022 12:45 AM CDT): Flu vaccine updated today in the office Assessment & Plan (07/24/2021 6:02 PM PROFESSOR IN FAMILY STUDIES): FLU updated in the office Assessment & Plan (06/09/2020 1:35 PM CDT): Flu shot today Hordeolum externum of right upper eyelid 020 Assessment & Plan (06/09/2020 1:47 PM CDT): Advised warm compresses, baby no tears shampoo wash bid, not squeezing on it. Advised f/u in 1w if not resolving, sooner if worsening. Otalgia 06/09/2020 Assessment & Plan (06/09/2020 1:47 PM CDT): Advised antibiotic x 10 days. Advised f/u in 1w if not improving, sooner if symptoms worsen. Changing skin lesion 09/27/2019 Assessment & Plan (09/27/2019 11:12 PM PROFESSOR [employer] FAMILY [employer]): This is a significant, separately identifiable problem that was evaluated and managed on the same day as the wellness exam Refer to Derm Blood in stool 09/27/2019 Assessment & Plan (09/27/2019 11:13 PM PROF[employer]OR [employer] FAMILY [employer]): This is a significant, separately identifiable problem that was evaluated and managed on the same day as the wellness exam Refer back to GI for further evaluation. Analpram to the pharamcy to help with possible internal hemorrhoids/bleeding. Annual physical exam 09/27/2019 Assessment & Plan (11/02/2023 11:30 PM PROFESSOR IN FAMILY [employer]UDIES): Encouraged healthy lifestyle, good nutrition and exercise. Encouraged Calcium and Vitamin D and weight bearing exercise for bone health. Reviewed immunizations Reviewed age appropirate screenings. Assessment & Plan (10/30/2022 5:13 PM PROFESSOR IN FAMILY [employer]UDIES): Encouraged healthy lifestyle, good nutrition and exercise. Encouraged Calcium and Vitamin D and weight bearing exercise for bone health. Reviewed immunizations Reviewed age appropirate screenings. Assessment & Plan (10/05/2021 8:50 PM PROFESSOR [employer] FAMILY [employer]IES): Encouraged healthy lifestyle, good nutrition and exercise. Encouraged Calcium and Vitamin D and weight bearing exercise for bone health. Reviewed immunizations Reviewed age appropirate screenings. Assessment & Plan (09/29/2020 9:57 PM PROFESSOR [employer] FAMILY [employer]IES): Encouraged healthy lifestyle, good nutrition and exercise. Encouraged Calcium and Vitamin D and weight bearing exercise for bone health. Reviewed immunizations Reviewed age appropirate screenings. Assessment & Plan (09/27/2019 11:12 PM PROFESSOR IN FAMILY [employer]IES): Encouraged healthy lifestyle, good nutrition and exercise. Encouraged Calcium and Vitamin D and weight bearing exercise for bone health. Reviewed immunizations Reviewed age appropirate screenings. Vestibular migraine 07/09/2019 Assessment & Plan (10/30/2022 5:12 PM PROFESSOR IN FAMILY [employer]UDIES): Continue per Dr. Kuo, Neurology in [place] Assessment & Plan (06/28/2022 12:47 AM CDT): ANJALI Torres that he was following with at [facility] has moved [place]. He would like to try to establish with Neurology [employer] supervisor the [facility]. Will make referral to [facility] in [place]. Chronic migraine w/o aura w/ o status migrainosus, not intractable 04/11/2018 Assessment & Plan (05/08/2023 8:46 PM CDT): Headache well controlled through the neurologist. Continue [id number] mg , Amovig and amitriptyline Assessment & Plan (04/11/2018 1:42 PM CDT): - Migraine appears to be his primary underlying issue. Because of his headache component I would like him to see a migraine specialist. - I did discuss the vestibular migraine variant and handed him some literature on dietary changes that may be helpful Imbalance 02/10/2018 Assessment & Plan (02/10/2018 6:02 PM CDT): - possible problem with visual gaze and tracking - recommend vestibular testing for more objective data on the problem. Will likely consider vestibular therapy after the testing FH: colon cancer 02/09/2013 Personal history of colonic polyps 02/09/2013 Overview (06/09/2020): Overview: 02/10/18- Colonoscopy- hyperplastic rectal polyp removed. Repeat 5 years (+FH). Ear ringing 12/08/2010 Sensorineural hearing loss (SNHL) of both ears 0 12/08/2010 Assessment & Plan (05/13/2024 9:35 PM CDT): Patient has hearing aids and they are working well Assessment & Plan (04/11/2018 1:43 PM CDT): - recommend hearing test every few years or if there are additional changes - at some point he will probably benefit from hearing aids but not at the moment Assessment & Plan (02/10/2018 6:01 PM CDT): - consider hearing aid trial - discussed the hearing loss link with tinnitus Obstructive sleep apnea 09/09/2010 Resolved Problems Problem Noted Date Diagnosed Date Resolved Date Ear itching 11/15/2023 05/13/2024 Acute non-recurrent pansinusitis 08/04/2023 11/02/2023 Assessment & Plan (08/04/2023 11:36 PM PROFESSOR IN FAMILY [employer]UDIES): Start antibiotic, antihistamine (Claritin OR Zyrtec), Mucinex 12hour and Steroid nasal spray (Flonase). Push fluids. Rest. Supportive care. If sxs worsen or don\'t improve, pt is to followup in the office. Encounter for pre-operative examination 04/25/2023 11/02/2023 Assessment & Plan (05/08/2023 8:49 PM CDT): I have examined this patient and ordered the appropriate lab work/tests. I have reviewed with patient the inherent risks associated with surgery, not limited to bleeding, infection, DVT, etc. EKG was normal. Patient denies any cardiac sxs with activity. Therefore, to the best of my knowledge, there is not a medical contraindication for undergoing this elective surgery with general and/or regional anesthesia. BMI 37.0-37.9, adult 06/23/2022 023 Assessment & Plan (06/23/2022 2:28 PM CDT): Discussed the patient's BMI. The BMI is above average. BMI management plan is completed. BMI Follow-up includes: nutrition counseling, exercise counseling and education provided. Morbid obesity 06/23/2022 10/26/2022 Assessment & Plan (06/23/2022 2:28 PM CDT): Discussed the patient's BMI. The BMI is above average. BMI management plan is completed. BMI Follow-up includes: nutrition counseling, exercise counseling and education provided. BMI 40.0-44.9, adult 11/11/2021 022 Assessment & Plan (11/11/2021 2:32 PM CDT): Obesity is unchanged. Discussed the patient's BMI. The BMI is above average. BMI management plan is completed. BMI Follow-up includes: nutrition counseling, exercise counseling and education provided. Morbid obesity with BMI of 40.0-44.9, adult 11/11/2021 06/28/2022 Assessment & Plan (11/11/2021 2:32 PM CDT): Obesity is unchanged. Discussed the patient's BMI. The BMI is above average. BMI management plan is completed. BMI Follow-up includes: nutrition counseling, exercise counseling and education provided. BMI 40.0-44.9, adult 10/05/2021 Assessment & Plan (10/05/2021 4:40 PM PROFESSOR IN FAMILY [employer]IES): Obesity is unchanged. Discussed the patient's BMI. The BMI is above average. BMI management plan is completed. BMI Follow-up includes: nutrition counseling, exercise counseling and education provided. Morbid obesity with BMI of 40.0-44.9, adult 10/05/2021 11/11/2021 Assessment & Plan (10/05/2021 4:41 PM PROFESSOR IN FAMILY [employer]IES): Obesity is unchanged. Discussed the patient's BMI. The BMI is above average. BMI management plan is completed. BMI Follow-up includes: nutrition counseling, exercise counseling and education provided. Morbid obesity with BMI of 40.0-44.9, adult 07/24/2021 10/05/2021 Assessment & Plan (07/24/2021 6:03 PM PROFESSOR IN FAMILY [employer]IES): Obesity is unchanged. Discussed the patient's BMI. The BMI is above average. BMI management plan is completed. BMI Follow-up includes: nutrition counseling, exercise counseling and education provided. Morbid obesity 07/21/2021 07/24/2021 Assessment & Plan (07/21/2021 7:31 AM PROFESSOR IN FAMILY [employer]IES): Obesity is unchanged. Discussed the patient's BMI. The BMI is above average. BMI management plan is completed. BMI Follow-up includes: nutrition counseling, exercise counseling and education provided. Acute non-recurrent pansinusitis 04/17/2021 07/24/2021 Assessment & Plan (04/17/2021 4:37 PM CDT): He declines the advised covid test. He will increase water, use tylenol q6h prn fever/headache. He will report to the er if symptoms worsen this weekend. His bp is mildly elevated - he is going to monitor at home and call if running >130/80. Morbid obesity with BMI of 40.0-44.9, adult 01/22/2021 07/24/2021 Assessment & Plan (07/21/2021 7:30 AM PROFESSOR IN FAMILY [employer]UDIES): Obesity is unchanged. Discussed the patient's BMI. The BMI is above average. BMI management plan is completed. BMI Follow-up includes: nutrition counseling, exercise counseling and education provided. Assessment & Plan (04/17/2021 11:01 AM CDT): Obesity is unchanged. Discussed the patient's BMI. The BMI is above average. BMI management plan is completed. BMI Follow-up includes: nutrition counseling, exercise counseling and education provided. Assessment & Plan (01/22/2021 9:53 AM CDT): Obesity is unchanged. Discussed the patient's BMI. The BMI is above average. BMI management plan is completed. BMI Follow-up includes: nutrition counseling, exercise counseling and education provided. BMI 40.0-44.9, adult 01/06/2021 021 Assessment & Plan (01/06/2021 2:45 PM CDT): Obesity is unchanged. Discussed the patient's BMI. The BMI is above average. BMI management plan is completed. BMI Follow-up includes: nutrition counseling, exercise counseling and education provided. BMI 40.0-44.9, adult 09/29/2020 021 Assessment & Plan (09/29/2020 4:30 PM PROFESSOR IN FAMILY [employer]IES): Obesity is unchanged. Discussed the patient's BMI. The BMI is above average. BMI management plan is completed. BMI Follow-up includes: nutrition counseling, exercise counseling and education provided. Other fatigue 09/29/2020 11/11/2021 Assessment & Plan (09/29/2020 9:58 PM PROFESSOR IN FAMILY [employer]UDIES): Probably multifactorial. Check labs and followup to re-evaluate Prostate cancer screening 09/29/2020 Assessment & Plan (09/29/2020 9:58 PM PROFESSOR IN FAMILY STUDIES): Check labs Lipid screening 09/29/2020 11/11/2021 Assessment & Plan (09/29/2020 9:58 PM PROFESSOR IN FAMILY [employer]UDIES): Encouraged patient to follow fat/low chol diet like the Mediterranean diet. Increase good fats in the diet. Increase exercise. Monitor labs as needed. Pre-diabetes 09/29/2020 11/11/2021 Assessment & Plan (10/05/2021 8:50 PM PROFESSOR IN FAMILY [employer]UDIES): Pre-diabetes/hyperglycemia is a precursor to Dm. Stressed importance of working on diet (decrease your simple sugars and one carbohydrate with each meal) and increase you exercise to achieve weight loss and this will help prevent you from progressing to diabetes. Assessment & Plan (09/29/2020 9:58 PM PROFESSOR IN FAMILY STUDIES): Pre-diabetes is a precursor to Dm. Stressed importance of working on diet (decrease your simple sugars and one carbohydrate with each meal) and increase you exercise to achieve weight loss and this will help prevent you from progressing to diabetes. BMI 40.0-44.9, adult 09/26/2019 021 Assessment & Plan (06/09/2020 1:29 PM CDT): Obesity is unchanged. Discussed the patient's BMI. The BMI is above average. BMI management plan is completed. BMI Follow-up includes: nutrition counseling, exercise counseling and education provided. Assessment & Plan (09/27/2019 11:11 PM PROFESSOR IN FAMILY [employer]UDIES): Obesity is unchanged. Discussed the patient's BMI. The BMI is above average. BMI management plan is completed. BMI Follow-up includes: nutrition counseling, exercise counseling and education provided. Obesity, morbid, BMI 40.0-49.9 09/26/2019 01/06/2021 Assessment & Plan (09/29/2020 9:57 PM PROFESSOR IN FAMILY [employer]UDIES): Obesity is unchanged. Discussed the patient's BMI. The BMI is above average. BMI management plan is completed. BMI Follow-up includes: nutrition counseling, exercise counseling and education provided. Assessment & Plan (06/09/2020 1:29 PM CDT): Obesity is unchanged. Discussed the patient's BMI. The BMI is above average. BMI management plan is completed. BMI Follow-up includes: nutrition counseling, exercise counseling and education provided. Assessment & Plan (09/27/2019 11:11 PM PROFESSOR IN FAMILY [employer]UDIES): Obesity is unchanged. Discussed the patient's BMI. The BMI is above average. BMI management plan is completed. BMI Follow-up includes: nutrition counseling, exercise counseling and education provided. Encounters Date Type Department Care Team Description 01/02/2025 1:30 PM CDT Office Visit [facility] [address] [place] [address] Fay Vasquez PA LUQ abdominal pain (Primary Dx); LLQ pain; Left flank pain; Type 2 diabetes mellitus with hyperlipidemia (HCC); Fatigue, unspecified type; Screening cholesterol level; BMI 38.0-38.9,adult 12/28/2024 8:15 AM CDT Office Visit [facility] Gastroenterology at [address] [place] [address] Brandon Green MD Gastroesophageal reflux disease without esophagitis (Primary Dx); Gastric intestinal metaplasia; Colon polyp; Family history of colonic polyps from Last 3 Months Immunizations Immunization Administration Dates Next Due Influenza, Quadrivalent, Spl it, Preservative Free, Intramuscular 05/30/2023,06/23/2022,07/21/2021,06/09 Influenza, Unspecified 08/29/2024(Deferr ed: Patient Refused),05/28/2019 Tdap 09/26/2019 Surgical History Surgery Date Site/Laterality Comments [place] ENTERORRHAPHY SINGLE PERFORATION Suture Of Small Intestine - (Added by TW Conv) [place] APPENDECTOMY Appendectomy - (Added by TW Conv) MYRINGOTOMY W/ TUBES Myringotomy - With Ventilating Tube Insertion - (Added by TW Conv) APPENDECTOMY ADENOIDECTOMY W/ MYRINGOTOMY AND TUBES tubes x3 SMALL INTESTINE SURGERY 1990 CYST REMOVAL 04/08/2023 Left ELBOW SURGERY COLONOSCOPY UPPER GASTROINTESTINAL ENDOSCOPY Medical History Medical History Date Comments Seasonal allergies Sleep apnea uses CPAP Sinus disease Migraines Diabetes mellitus (HCC) GERD (gastroesophageal reflux disease) Type 2 diabetes mellitus (HCC) Colon polyp Family History Medical History Relation Name Comments Migraines Brother Colon cancer Father's Sister Alzheimer's disease Maternal Grandfather Sukhi Ferrera Prostate cancer Maternal Grandfather Sukhi Ferrera Breast cancer Maternal Grandmother Migraines Mother fatty liver Mother Hypertension Other Paternal aunt Family history of hypertension - (Added by TW Conv) Heart disease Paternal Grandfather Christopher Blanchard Lung cancer Paternal Grandmother Relation Name Status Comments Brother Father's Sister Maternal Grandfather Sukhi Ferrera Maternal Grandmother Mother Other Paternal aunt Paternal Grandfather Christopher Blanchard Paternal Grandmother Social History Tobacco Use Types Packs/Day Years Used Date Smoking Tobacco: Never Passive Smoke Exposure: Never Smokeless Tobacco: Never Tobacco Cessation:Counseling Given: Not Answered Alcohol Use Standard Drinks/Week Comments No 0 (1 standard drink = 0.6 oz pur e alcohol) AUDIT-C Answer Date Recorded Q1: How often do you have a drink containing alcohol? Never 01/02/2025 Q2: How many drinks containi ng alcohol do you have on a typical day when you are drinking? Patient does not drink Q3: How often do you have si x or more drinks on one occasion? Never 01/02/2025 PHQ-2 Answer Date Recorded PHQ-2 Total Score (If total score is 3 or more points, staff should administer the PHQ-9) 0 01/02/2025 Personal Safety Answer Date Recorded Have you ever been in or are you currently in a harmful physical or emotional relationship or is someone making you feel afraid or unsafe? 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 Not on file Not on file Not on file Obstetrics History Last Filed Vital Signs Vital Sign Reading Time Taken Comments Blood Pressure 144/98 01/02/2025 1:21 PM CDT Pulse 96 01/02/2025 1:21 PM CDT Temperature 37.2 C (99 F) 01/02/2025 1:21 PM CDT Respiratory Rate 14 09/18/2024 1:46 PM PROFESSOR [employer] FAMILY [employer] Oxygen Saturation 97% 01/02/2025 1:21 PM CDT Inhaled Oxygen Concentration - - Weight 117 kg (258 lb) 01/02/2025 1:21 PM CDT Height 175.3 cm (5' 9 ) 01/02/2025 1:21 PM CDT Body Mass Index 38.1 01/02/2025 1:21 PM CDT Plan of Treatment Health Maintenance Due Date Last Done Comments Hepatitis C Screening 1975 Foot Exam 1975 Hepatitis B Screening 1995 Pneumococcal vaccine <65 (1 of 2 - PCV) 1996 Covid-19 Vaccine (4 - 2023-2 5 season) 2024 11/27/2021, 12/22/2020, 12/01/2020 Albumin Creatinine Ratio, Urine 10/26/2024 , 10/01/2022 Regular Well Visit/Exam 18-64 11/01/2024, 10/26/2022, 10/05/2021, Additional history exists Hemoglobin A1C 03/10/2025 09/10/2024, 09/0 01/2024, 10/26/2023, Additional history exists Influenza Vaccine (Season Ended) 2025 05/30/2023, 06/23/2022, 07/21/2021, Additional history exists eGFR 06/15/2025 06/15/2024, 09/0 01/2024, 10/26/2023, Additional history exists Lipid Panel 09/10/2025 09/10/2024, 022 03/2024, 10/01/2022, Additional history exists Dilated Eye Exam 11/07/2025 11/07/2024, 11/2023, 01/07/2022 Depression Screening 01/02/2026 01/02/2025, 09/10/2024, 05/09/2024, Additional history exists Colon Cancer Screening-Colonoscopy 09/23/20262023, 02/10/2018 DTaP/Tdap/Td Vaccine (2 - Td or Tdap) 09/26/2029 09/26/2019 Procedures Procedure Name Priority Date/Time Associated Diagnosis Comments POCT URINALYSIS DIPSTICK Routine 01/02/2025 2:55 PM CDT Left flank pain HM DIABETES EYE EXAM Routine 11/07/2024 8:41 AM CDT POCT HEMOGLOBIN A1C Routine 09/10/2024 3 :34 PM [employer]OR [employer]ILY [employer] Type 2 diabetes mellitus with hyperlipidemia (HCC) POCT LIPID PANEL Routine 09/10/2024 3:30 PM PROFESSOR [employer] FAMILY [employer] Type 2 diabetes mellitus with hyperlipidemia (HCC) COMPREHENSIVE METABOLIC PANEL Routine 06/15/2024 8:52 AM CDT Type 2 diabetes mellitus with hyperlipidemia (HCC) ALBUMIN CREATININE RATIO, URINE Routine 10/26/2023 12:00 PM PROF[employer] FAMILY [employer] Type 2 diabetes mellitus with hyperlipidemia (HCC) COLONOSCOPY 09/23/2023 10:37 AM PROFESSOR [employer] FAMILY [employer]IES from Last 3 Months or Most Recently Relevant to Health Maintenance Results * (ABNORMAL) POCT urinalysis dipstick (01/02/2025 2:55 PM CDT) Glucose, ur, POC 500.(A) Negative Bilirubin, ur, POC Negative Negative Ketones, ur, POC Negative Negative Specific Medicine Bow, POC 1.025 1.003 - 1.030 Blood, ur, POC Trace(A) Negative pH, ur, POC 5.5 5.0 - 8.0 Protein, ur, POC Negative Negative Urobilinogen, urine, POC 0.2 0.2 - 1.0 mg/dL Nitrite, ur, POC Negative Negative Leukocytes, ur, POC Negative Negative Lot Number [id number] Urine 01/02/2025 2:55 PM CDT Fay ALBA POINT OF CARE TEST ORDERAB LES Edited Result - Final * DIABETES EYE EXAM (11/07/2024 8:41 AM CDT) Pathologist [facility] SCRIBED DIABETIC DILATED EYE EXAM Normal Impressions Bettina Martinez MA - 11/07/2024 8:41 AM CDT No evidence of macular edema No diabetic retinopathy was detected. Result [facility] Historical Provider HEALTH MAINTENANCE Final Result * POCT hemoglobin A1c (09/10/2024 3:34 PM PROFESSOR IN FAMILY [employer]UDIES) Pathologist [facility] Hemoglobin A1C, POC 7.4 4.0 - 5.6 % Blood 09/10/2024 3:34 PM [employer] FAMILY [employer] Result [facility] Fay ALBA POINT OF CARE TEST ORDERAB LES Final Result * (ABNORMAL) POCT lipid panel (09/10/2024 3:30 PM PROFESSOR IN FAMILY [employer]UDIES) [facility] Cholesterol, POC 115 mg/dL [facility] HDL, POC 16 mg/dL [facility] Triglycerides, POC 231 mg/dL [facility] LDL Cholesterol POC 53 mg/dL [facility] Non-HDL Cholesterol, POC 99 mg/dL [facility] Cholesterol Total, POC 7.2 mg/dL [facility] Capillary blood 09/10/2024 3 :30 PM PROFESSOR [employer] FAMILY [employer]UDIES Result [facility] Fay ALBA POINT OF CARE TEST ORDERAB LES Edited Result - Final [facility] [address] [place] [address] * (ABNORMAL) Comprehensive metabolic panel (06/15/2024 8:52 AM CDT) Glucose 138(H) 65 - 99 mg/dL [facility] Comment: Fasting reference interval For someone without known diabetes, a glucose value >125 mg/dL indicates that they may have diabetes and this should be confirmed with a follow-up test. BUN 22 7 - 25 mg/dL [facility] Creatinine 1.26 0.60 - 1.29 mg/dL [facility] eGFR 71 > OR = 60 mL/min/1.7 3m2 [facility] BUN/creat ratio SEE NOTE: 6 - 22 (calc) [facility] Comment: Not Reported: BUN and Creatinine are within reference range. Sodium 139 135 - 146 mmol/L [facility] Potassium, pl 4.3 3.5 - 5.3 mmol/L [facility] Chloride 101 98 - 110 mmol/L [facility] CO2 29 20 - 32 mmol/L [facility] Calcium 9.6 8.6 - 10.3 mg/dL [facility] Protein, sr 7.2 6.1 - 8.1 g/dL [facility] Albumin 4.6 3.6 - 5.1 g/dL [facility] GLOBULIN 2.6 1.9 - 3.7 g/dL (calc) [facility] Alb/glob ratio 1.8 1.0 - 2.5 (calc) [facility] Bilirubin, total 0.8 0.2 - 1.2 mg/dL [facility] Alk phos 75 36 - 130 U/L [facility] AST 33 10 - 40 U/L [facility] ALT (SGPT) 49(H) 9 - 46 U/L [facility] Blood 06/15/2024 8:52 AM CDT 06/15/2024 8:53 AM CDT Narrative [facility] - 06/16/2024 2:33 AM CDT FASTING:YES FASTING: YES us Fay ALBA LAB BLOOD ORDERABLES Final Result [facility] [address] [id number] * Albumin Creatinine Ratio, Urine (10/26/2023 12:00 PM PROFESS[employer] FAMILY [employer]) Creatinine, ur 151 20 - 320 mg/dL [facility] Microalbumin, ur 0.7 See Note: mg/dL [facility] Comment: Reference Range: Reference Range Not established Microalbumin/creat ratio 5 <30 mcg/mg creat [facility] Comment: The ADA defines abnormalities in albumin excretion as follows: Albuminuria Category Result (mcg/mg creatinine) Normal to Mildly increased <30 Moderately increased 30-299 Severely increased > OR = 300 The ADA recommends that at least two of three specimens collected within a 3-6 month period be abnormal before considering a patient to be within a diagnostic category. Urine 10/26/2023 12:0 0 PM [employer] FAMILY [employer] 10/26/2023 12:01 PM PROF[employer] FAMILY [employer] Narrative [facility] - 10/27/2023 1:07 PM PROFESSOR IN FAMILY [employer]IES FASTING:YES FASTING: YES Fay ALBA LAB URINE ORDERABLES Final Result [facility] [address] [phone] * COLONOSCOPY (09/23/2023 10:37 AM PROFESSOR IN FAMILY [employer]) Anatomical Region Laterality Modality Other Narrative Procedure Note Brandon Green MD - 09/23/2023 10:37 AM [facility]ST [facility] GI ENDOSCOPY Patient Name: Sukhi Blanchard Procedure Date: 09/23/2023 10:37 AM Date of : 1975 Admit Type: Outpatient Age: 48 Gender: Male Attending MD: Brandon Green M.D. Room: [facility] ENDOSCOPY ROOM 06 Note Status: Finalized Procedure: Colonoscopy Indications: High risk colon cancer surveillance: Personalhistory of colonic polyps, Family history of colon polyp Referring MD: Chip Silva.NLauri Providers: Brandon Green M.D. Medicines: Monitored Anesthesia Care Complications: No immediate complications. Estimated Blood Loss: Estimated blood loss: none. Procedure: Pre-Anesthesia Assessment: - Prior to the procedure, a History and Physicalwas performed, and patient medications and allergieswere reviewed. The risks and benefits of the procedureand the sedation options and risks were discussed withthe patient. All questions were answered and informed consent was obtained. Patient identification and proposed procedure were verified. After reviewingthe risks and benefits, the patient was deemed in satisfactory condition to undergo the procedure.The anesthesia plan was to use monitored anesthesiacare (MAC). Immediately prior to administration of medications, the patient was re-assessed foradequacy to receive sedatives. The heart rate, respiratory rate, oxygen saturations, blood pressure, adequacyof pulmonary ventilation, and response to care were monitored throughout the procedure. The physical status of the patient was re-assessed after the procedure. The benefits, risks and alternatives of theprocedure and sedation were discussed and informed consentwas obtained. All questions were answered. Please referto the signed informed consent document in the medical record. The scope was passed under direct vision.The PCF-FY649G colonoscope was introduced through theanus and advanced to the ascending colon, scope couldnot be advanced further due to tortuous colon. Thepatient tolerated the procedure well. The colonoscopy was technically difficult and complex due to a tortuous colon. Successful completion of the procedure was aided by changing the patient to a supine position. Prep was administered in a split dose. Findings: The perianal and digital rectal examinations were normal. A 10 mm polyp was found in the transverse colon. The polyp wassessile. The polyp was removed with a hot snare. Resection and retrieval were complete. Two sessile polyps were found in the splenic flexure. The polyps were10 to 15 mm in size. These polyps were removed with a hot snare.Resection and retrieval were complete. A 10 mm polyp was found in the descending colon. The polyp wassessile. The polyp was removed with a hot snare. Resection and retrieval were complete. A few small-mouthed diverticula were found in the sigmoid colon. Non-bleeding internal hemorrhoids were found during retroflexion. The hemorrhoids were small. Impression: - Incomplete colonoscopy to the ascending colonscope could not be advanced further due to tortuosity - One 10 mm polyp in the transverse colon, removed with a hot snare. Resected and retrieved. - Two 10 to 15 mm polyps at the splenic flexure, removed with a hot snare. Resected and retrieved. - One 10 mm polyp in the descending colon, removed with a hot snare. Resected and retrieved. - Diverticulosis in the sigmoid colon. - Non-bleeding internal hemorrhoids. Recommendation: - Patient has a contact number available for emergencies. The signs and symptoms of potential delayed complications were discussed with thepatient. Return to normal activities tomorrow. Written discharge instructions were provided to thepatient. - High fiber diet. - Continue present medications. - Await pathology results. - Recommend barium enema given incompletecolonoscopy, if barium enema normal repeat colonoscopy in 3years. Brandon Green M.D. Brandon Green M.D. 09/23/2023 11:58:34 AM . Number of Addenda: 0 Note Initiated On: 09/23/2023 10:37 AM Recognized by the [employer] for promoting quality in endoscopy Brandon Green MD ENDOSCOPY PROCEDURES Final Resul t from Last 3 Months or Most Recently Relevant to Health Maintenance Insurance [facility] O Care Teams Green Marketing Specialist Relationship Specialty Start Date End Date Fay Vasquez PA [address] [facility] [address] [place] [address] PCP - General Internal Medicine 09/11/19 Cathleen Lacey PA [address] [place] [address] [address] [place] [address] Physician Message Broker Developer Orthopedic Surgery 05/05/23
--- OUTSIDE RECORDS SUMMARY | 2025-01-02 15:47 | XMS_ITS | Continuity of Care Document ---
Author Organization [facility] Address [address] [place] [address] [address] [place] [address] Phone Care Team Providers Care Parks And Recreation Worker Name Role Phone Andersen OD, Herminio Unavailable Unavailable Procedures Procedure Date Office/outpatient Visit, Est Eye Exam, New Patient Advance Directives Directive Yes / No Effective Date File Name No Information Encounters Encounter Description Practice Location Reason(s) For Visit Diagnoses Date Provider Providers Copied on Encounter Office/outpat ient Visit, Est [facility], [address], [place], [place], [id number], [place] tel:[phone] [facility] No Information 2-200 9 Andersen OD Herminio. [address], [place], [place], [facility], [place]. tel:[phone] [facility], [address] [place] [address] [address], [place], [place], [id number], tel:[phone] [facility] No Information 7-200 9 Krishnasamy Albert. [address], [place], [place], [facility], [place]. tel:[phone] Family History Family Member Type Diagnosis Age At Onset No Information Payers Payer name Insurance type Covered republican ID Authoriza tion(s) No Information Social History Type Description Quantity Date Captured Comments Sex Male Smoking Status No Information Chief Complaint And Reason For Visit No Information Reason For Referral Reason For Referral No Information History Of Present Illness Encounter Date Complaint History Of Prese nt Illness No Information Functional Status Date Functional Assessmen t No Information Instructions Date Instruction Additional Infor mation No Information Assessments Type Assessment Date No Information Patient Care Teams Name Effective Dates (start - stop) Status Members No Information
--- OUTSIDE RECORDS SUMMARY | 2025-01-02 15:47 | XMS_ITS | Referral Summary ---
Author Organization [facility] Address [address] [place] [address] Care Team Providers Care Resident Hall Director Name Role Phone Fay Vasquez Primary Care Provider [phone] Cathleen Lacey Unavailable [phone] Encounters Date Type Department Care Team Description 01/02/2025 1:30 PM CDT Office Visit [facility] Family Medicine [address] [place] [address] Fay Vasquez PA LUQ abdominal pain (Primary Dx); LLQ pain; Left flank pain; Type 2 diabetes mellitus with hyperlipidemia (HCC); Fatigue, unspecified type; Screening cholesterol level; BMI 38.0-38.9,adult 12/28/2024 8:15 AM CDT Office Visit [facility] Gastroenterology at [address] [place] [address] Brandon Green MD Gastroesophageal reflux disease without esophagitis (Primary Dx); Gastric intestinal metaplasia; Colon polyp; Family history of colonic polyps from Last 3 Months Allergies Active Allergy Reactions Criticality Noted Date [...] 1 tablet (14 mg total) by mouth early head start director before breakfast 90 tablet 5 Active dapagliflozin propanediol (FARXIGA) 10 mg [...] 11/02/2023 Assessment & Plan (11/02/2023 11:31 PM DISTRIBUTOR SALES CONSULTANT): Patient has noted decreased hearing in both [...] surveillance Assessment & Plan (10/13/2023 9:14 AM DISTRIBUTOR SALES CONSULTANT): Noted on pathology from EGD biopsies August [...] 04/25/2023 Assessment & Plan (09/10/2024 5:05 PM DISTRIBUTOR SALES CONSULTANT): Discussed the patient's BMI. The BMI is above average. BMI management plan is completed. BMI Follow-up includes: nutrition counseling, exercise counseling and education provided. Assessment & Plan (05/09/2024 2:48 PM CDT): Discussed the patient's BMI. The BMI is above average. BMI management plan is completed. BMI Follow-up includes: nutrition counseling, exercise counseling and education provided. Assessment & Plan (11/02/2023 11:30 PM DISTRIBUTOR SALES CONSULTANT): Discussed the patient's BMI. The BMI is above average. BMI management plan is completed. BMI Follow-up includes: nutrition counseling, exercise counseling and education provided. Assessment & Plan (08/04/2023 11:36 PM DISTRIBUTOR SALES CONSULTANT): Discussed the patient's BMI. The BMI is [...] 10/26/2022 Assessment & Plan (09/10/2024 3:23 PM DISTRIBUTOR SALES CONSULTANT): Discussed the patient's BMI. The BMI is above average. BMI management plan is completed. BMI Follow-up includes: nutrition counseling, exercise counseling and education provided. Assessment & Plan (05/09/2024 2:48 PM CDT): Discussed the patient's BMI. The BMI is above average. BMI management plan is completed. BMI Follow-up includes: nutrition counseling, exercise counseling and education provided. Assessment & Plan (11/02/2023 11:30 PM DISTRIBUTOR SALES CONSULTANT): Discussed the patient's BMI. The BMI is above average. BMI management plan is completed. BMI Follow-up includes: nutrition counseling, exercise counseling and education provided. Assessment & Plan (08/04/2023 11:36 PM DISTRIBUTOR SALES CONSULTANT): Discussed the patient's BMI. The BMI is above average. BMI management plan is completed. BMI Follow-up includes: nutrition counseling, exercise counseling and education provided. Assessment & Plan (05/08/2023 8:49 PM CDT): Discussed the patient's BMI. The BMI is above average. BMI management plan is completed. BMI Follow-up includes: nutrition counseling, exercise counseling and education provided. Assessment & Plan (10/30/2022 5:15 PM DISTRIBUTOR SALES CONSULTANT): Discussed the patient's BMI. The BMI is [...] provided. Assessment & Plan (10/26/2022 3:45 PM DISTRIBUTOR SALES CONSULTANT): Discussed the patient's BMI. The BMI is [...] loss Assessment & Plan (09/10/2024 5:03 PM DISTRIBUTOR SALES CONSULTANT): Continue PPI p.r.n. Assessment & Plan (11/02/2023 11:30 PM DISTRIBUTOR SALES CONSULTANT): Continue PPI p.r.n. Assessment & Plan (10/13/2023 9:15 AM DISTRIBUTOR SALES CONSULTANT): Chronic GERD for over 10 years, takes [...] loss Assessment & Plan (10/25/2022 1:45 PM DISTRIBUTOR SALES CONSULTANT): Chronic GERD for over 10 years, takes [...] cancer. Assessment & Plan (10/13/2023 9:06 AM DISTRIBUTOR SALES CONSULTANT): Patient's mother had a large benign polyp requiring surgical resection. Patient's paternal aunt had colon cancer. Assessment & Plan (10/25/2022 1:45 PM DISTRIBUTOR SALES CONSULTANT): Patient's mother had a large benign polyp [...] 2026 Assessment & Plan (11/02/2023 11:30 PM DISTRIBUTOR SALES CONSULTANT): History of adenomas. Colonoscopy to be repeated in August of [address] Green Assessment & Plan (10/13/2023 9:10 AM DISTRIBUTOR SALES CONSULTANT): Colonoscopy by Dr. Mark Ji in January 2018 with a 3 mm hyperplastic polyp in the rectum removed with cold snare, small internal hemorrhoids, otherwise unremarkable colonoscopy. Colonoscopy August 2023 incomplete to the ascending colon due to tortuosity, multiple tubular adenomas removed, diverticulosis, and internal hemorrhoids. Subsequent barium enema was unremarkable. -repeat colonoscopy August 2026 Assessment & Plan (10/30/2022 5:14 PM DISTRIBUTOR SALES CONSULTANT): History of colon polyps. Has colonoscopy scheduled in February of [address] Green Assessment & Plan (10/25/2022 1:45 PM DISTRIBUTOR SALES CONSULTANT): Last colonoscopy by Dr. Mark Ji in [...] 02/2022 Assessment & Plan (09/10/2024 5:04 PM DISTRIBUTOR SALES CONSULTANT): Stressed importance of continued A1c control to minimize the group home effects of diabetes. Bring accuchecks to office [...] of continued A1c control to minimize the meterman effects of diabetes. Bring accuchecks to office [...] statin Assessment & Plan (11/02/2023 11:30 PM DISTRIBUTOR SALES CONSULTANT): Stressed importance of continued A1c control to minimize the group home effects of diabetes. Bring accuchecks to office [...] Increase exercise. Monitor labs as needed. Continue [id number] and Crestor Assessment & Plan (05/08/2023 8:47 PM CDT): Stressed importance of continued A1c control to minimize the meterman effects of diabetes. Bring accuchecks to office when instructed to do so. Check A1c about every 3-6 months. Take medication as prescribed. Get annual eye exam. Encouraged JUAN/Statin if able to tolerate. Encouraged weight control and encouraged diabetic diet and exercise. Doing great with the Rybelsus 14 mg daily. Continue with statin Assessment & Plan (10/30/2022 5:16 PM DISTRIBUTOR SALES CONSULTANT): Encouraged patient to follow low fat/low chol [...] of continued A1c control to minimize the meterman effects of diabetes. Bring accuchecks to office [...] Discussed with patient at length diabetes, pathogenesis, meterman sequela, end organ damage, diet/exercise/weight loss, and [...] feet on a regular basis to avoid group home problems. Offered referral to specimen transporter. Start Rybelsus 3 mg x 1 month increased to 7 mg. Coupon provided. Reviewed risks, benefit, alternatives, side effects and proper use. Follow-up in 3-4 months reassess A1c. Assessment & Plan (10/05/2021 8:50 PM DISTRIBUTOR SALES CONSULTANT): Encouraged patient to follow fat/low chol diet like the Mediterranean diet. Increase good fats in the diet. Increase exercise. Monitor labs as needed. Fatigue 10/05/2021 Assessment & Plan (09/10/2024 5:04 PM DISTRIBUTOR SALES CONSULTANT): Probably multifactorial. Check labs and followup to re-evaluate Assessment & Plan (06/28/2022 12:46 AM CDT): Probably multifactorial. Check labs and followup to re-evaluate Assessment & Plan (10/05/2021 8:50 PM DISTRIBUTOR SALES CONSULTANT): Probably multifactorial. Check labs and followup to re-evaluate Congestion of upper airway 09/02/2021 Assessment & Plan (09/02/2021 11:31 AM DISTRIBUTOR SALES CONSULTANT): Patient to presume positive COVID until results are available and self isolate for 10 days from the onset of sxs. Check COVID test thru [facility] collection site in [place]. If positive, complete quarantine and consider monoclonal [...] water often. If needed, use a hand roller maker that contains at least 60% alcohol. Clean [...] evaluation Assessment & Plan (07/24/2021 6:03 PM DISTRIBUTOR SALES CONSULTANT): Lateral right lateral epicondylitis by exam. Encouraged [...] returns or persists may consider referral to hims coder. He is in agreement. Stressed importance of good she use also. Cough 07/09/2020 Chest tightness 07/09/2020 Assessment & Plan (07/09/2020 3:15 PM DISTRIBUTOR SALES CONSULTANT): Will order covid 19 testing on patient - he will report to [facility] today or tomorrow before 430pm for testing. He will continue to quarantine. He will use tylenol q6h prn fever/body aches. He will report to the er if worsening. We will notify him of covid 19 testing results as available. Acute intractable headache 07/09/2020 Assessment & Plan (07/09/2020 3:15 PM DISTRIBUTOR SALES CONSULTANT): Will order covid 19 testing on patient - he will report to [facility] today or tomorrow before 430pm for testing. [...] office Assessment & Plan (07/24/2021 6:02 PM DISTRIBUTOR SALES CONSULTANT): FLU updated in the office Assessment & [...] 09/27/2019 Assessment & Plan (09/27/2019 11:12 PM DISTRIBUTOR SALES CONSULTANT): This is a significant, separately identifiable problem that was evaluated and managed on the same day as the wellness exam Refer to Derm Blood in stool 09/27/2019 Assessment & Plan (09/27/2019 11:13 PM DISTRIBUTOR SALES CONSULTANT): This is a significant, separately identifiable problem that was evaluated and managed on the same day as the wellness exam Refer back to GI for further evaluation. Analpram to the pharamcy to help with possible internal hemorrhoids/bleeding. Annual physical exam 09/27/2019 Assessment & Plan (11/02/2023 11:30 PM DISTRIBUTOR SALES CONSULTANT): Encouraged healthy lifestyle, good nutrition and exercise. Encouraged Calcium and Vitamin D and weight bearing exercise for bone health. Reviewed immunizations Reviewed age appropirate screenings. Assessment & Plan (10/30/2022 5:13 PM DISTRIBUTOR SALES CONSULTANT): Encouraged healthy lifestyle, good nutrition and exercise. Encouraged Calcium and Vitamin D and weight bearing exercise for bone health. Reviewed immunizations Reviewed age appropirate screenings. Assessment & Plan (10/05/2021 8:50 PM DISTRIBUTOR SALES CONSULTANT): Encouraged healthy lifestyle, good nutrition and exercise. Encouraged Calcium and Vitamin D and weight bearing exercise for bone health. Reviewed immunizations Reviewed age appropirate screenings. Assessment & Plan (09/29/2020 9:57 PM DISTRIBUTOR SALES CONSULTANT): Encouraged healthy lifestyle, good nutrition and exercise. Encouraged Calcium and Vitamin D and weight bearing exercise for bone health. Reviewed immunizations Reviewed age appropirate screenings. Assessment & Plan (09/27/2019 11:12 PM DISTRIBUTOR SALES CONSULTANT): Encouraged healthy lifestyle, good nutrition and exercise. Encouraged Calcium and Vitamin D and weight bearing exercise for bone health. Reviewed immunizations Reviewed age appropirate screenings. Vestibular migraine 07/09/2019 Assessment & Plan (10/30/2022 5:12 PM DISTRIBUTOR SALES CONSULTANT): Continue per Dr. Kuo, Neurology in [place] Assessment & Plan (06/28/2022 12:47 AM CDT): ANJALI Torres that he was following with at [facility] has moved [place]. He would like to try to establish with Neurology salesperson art objects the [facility] side. Will make referral to [facility] Neurology in [place]. Chronic migraine w/o aura w/ o status migrainosus, not intractable 04/11/2018 Assessment & Plan (05/08/2023 8:46 PM CDT): Headache well controlled through the neurologist. Continue [id number] mg , Amovig and amitriptyline Assessment & [...] 11/02/2023 Assessment & Plan (08/04/2023 11:36 PM DISTRIBUTOR SALES CONSULTANT): Start antibiotic, antihistamine (Claritin OR Zyrtec), Mucinex [...] and education provided. BMI 40.0-44.9, adult 10/05/2021 022 Assessment & Plan (10/05/2021 4:40 PM DISTRIBUTOR SALES CONSULTANT): Obesity is unchanged. Discussed the patient's BMI. The BMI is above average. BMI management plan is completed. BMI Follow-up includes: nutrition counseling, exercise counseling and education provided. Morbid obesity with BMI of 40.0-44.9, adult 10/05/2021 11/11/2021 Assessment & Plan (10/05/2021 4:41 PM DISTRIBUTOR SALES CONSULTANT): Obesity is unchanged. Discussed the patient's BMI. The BMI is above average. BMI management plan is completed. BMI Follow-up includes: nutrition counseling, exercise counseling and education provided. Morbid obesity with BMI of 40.0-44.9, adult 07/24/2021 10/05/2021 Assessment & Plan (07/24/2021 6:03 PM DISTRIBUTOR SALES CONSULTANT): Obesity is unchanged. Discussed the patient's BMI. The BMI is above average. BMI management plan is completed. BMI Follow-up includes: nutrition counseling, exercise counseling and education provided. Morbid obesity 07/21/2021 07/24/2021 Assessment & Plan (07/21/2021 7:31 AM DISTRIBUTOR SALES CONSULTANT): Obesity is unchanged. Discussed the patient's BMI. [...] 07/24/2021 Assessment & Plan (07/21/2021 7:30 AM DISTRIBUTOR SALES CONSULTANT): Obesity is unchanged. Discussed the patient's BMI. [...] 021 Assessment & Plan (09/29/2020 4:30 PM DISTRIBUTOR SALES CONSULTANT): Obesity is unchanged. Discussed the patient's BMI. The BMI is above average. BMI management plan is completed. BMI Follow-up includes: nutrition counseling, exercise counseling and education provided. Other fatigue 09/29/2020 11/11/2021 Assessment & Plan (09/29/2020 9:58 PM DISTRIBUTOR SALES CONSULTANT): Probably multifactorial. Check labs and followup to re-evaluate Prostate cancer screening 09/29/2020 Assessment & Plan (09/29/2020 9:58 PM DISTRIBUTOR SALES CONSULTANT): Check labs Lipid screening 09/29/2020 11/11/2021 Assessment & Plan (09/29/2020 9:58 PM DISTRIBUTOR SALES CONSULTANT): Encouraged patient to follow fat/low chol diet like the Mediterranean diet. Increase good fats in the diet. Increase exercise. Monitor labs as needed. Pre-diabetes 09/29/2020 11/11/2021 Assessment & Plan (10/05/2021 8:50 PM DISTRIBUTOR SALES CONSULTANT): Pre-diabetes/hyperglycemia is a precursor to Dm. Stressed importance of working on diet (decrease your simple sugars and one carbohydrate with each meal) and increase you exercise to achieve weight loss and this will help prevent you from progressing to diabetes. Assessment & Plan (09/29/2020 9:58 PM DISTRIBUTOR SALES CONSULTANT): Pre-diabetes is a precursor to Dm. Stressed [...] provided. Assessment & Plan (09/27/2019 11:11 PM DISTRIBUTOR SALES CONSULTANT): Obesity is unchanged. Discussed the patient's BMI. The BMI is above average. BMI management plan is completed. BMI Follow-up includes: nutrition counseling, exercise counseling and education provided. Obesity, morbid, BMI 40.0-49.9 09/26/2019 01/06/2021 Assessment & Plan (09/29/2020 9:57 PM DISTRIBUTOR SALES CONSULTANT): Obesity is unchanged. Discussed the patient's BMI. [...] provided. Assessment & Plan (09/27/2019 11:11 PM DISTRIBUTOR SALES CONSULTANT): Obesity is unchanged. Discussed the patient's BMI. The BMI is above average. BMI management plan is completed. BMI Follow-up includes: nutrition counseling, exercise counseling and education provided. 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 Not on file Not on file Not on file Last Filed Vital Signs Vital Sign Reading Time Taken Comments Blood Pressure 144/98 01/02/2025 1:21 PM CDT Pulse 96 01/02/2025 1:21 PM CDT Temperature 37.2 C (99 F) 01/02/2025 1:21 PM CDT Respiratory Rate 14 09/18/2024 1:46 PM DISTRIBUTOR SALES CONSULTANT Oxygen Saturation 97% 01/02/2025 1:21 PM CDT Inhaled Oxygen Concentration - - Weight 117 kg (258 lb) 01/02/2025 1:21 PM CDT Height 175.3 cm (5' 9 ) 01/02/2025 1:21 PM CDT Body Mass Index 38.1 01/02/2025 1:21 PM CDT Plan of Treatment Not on file Procedures Procedure Name Priority Date/Time Associated Diagnosis Comments POCT URINALYSIS DIPSTICK Routine 01/02/2025 2:55 PM CDT Left flank pain HM DIABETES EYE EXAM Routine 11/07/2024 8:41 AM CDT POCT HEMOGLOBIN A1C Routine 09/10/2024 3 :34 PM DISTRIBUTOR SALES CONSULTANT Type 2 diabetes mellitus with hyperlipidemia (HCC) POCT LIPID PANEL Routine 09/10/2024 3:30 PM DISTRIBUTOR SALES CONSULTANT Type 2 diabetes mellitus with hyperlipidemia (HCC) COMPREHENSIVE METABOLIC PANEL Routine 06/15/2024 8:52 AM CDT Type 2 diabetes mellitus with hyperlipidemia (HCC) ALBUMIN CREATININE RATIO, URINE Routine 10/26/2023 12:00 PM DISTRIBUTOR SALES CONSULTANT Type 2 diabetes mellitus with hyperlipidemia (HCC) COLONOSCOPY 09/23/2023 10:37 AM DISTRIBUTOR SALES CONSULTANT from Last 3 Months or Most Recently Relevant to Health Maintenance Results * (ABNORMAL) POCT urinalysis dipstick (01/02/2025 2:55 PM CDT) Glucose, ur, POC 500.(A) Negative Bilirubin, ur, POC Negative Negative Ketones, ur, POC Negative Negative Specific [place], POC 1.025 1.003 - 1.030 Blood, ur, POC Trace(A) Negative pH, ur, POC 5.5 5.0 - 8.0 Protein, ur, POC Negative Negative Urobilinogen, urine, POC 0.2 0.2 - 1.0 mg/dL Nitrite, ur, POC Negative Negative Leukocytes, ur, POC Negative Negative Lot Number [id number] Urine 01/02/2025 2:55 PM CDT Fay ALBA POINT OF CARE TEST ORDERAB LES Edited Result - Final * DIABETES EYE EXAM (11/07/2024 8:41 AM CDT) Pathologist [facility] SCRIBED DIABETIC DILATED EYE EXAM Normal Impressions Bettina Martinez MA - 11/07/2024 8:41 AM CDT No evidence of macular edema No diabetic retinopathy was detected. Historical Provider MD HEALTH MAINTENANCE Final Result * POCT hemoglobin A1c (09/10/2024 3:34 PM DISTRIBUTOR SALES CONSULTANT) Pathologist [facility] Hemoglobin A1C, POC 7.4 4.0 - 5.6 % Blood 09/10/2024 3:34 PM DISTRIBUTOR SALES CONSULTANT Fay ALBA POINT OF CARE TEST ORDERAB LES Final Result * (ABNORMAL) POCT lipid panel (09/10/2024 3:30 PM DISTRIBUTOR SALES CONSULTANT) [facility] Cholesterol, POC 115 mg/dL [facility] HDL, POC 16 mg/dL [facility] Triglycerides, POC 231 mg/dL [facility] LDL Cholesterol POC 53 mg/dL [facility] Non-HDL Cholesterol, POC 99 mg/dL [facility] Cholesterol Total, POC 7.2 mg/dL [facility] Capillary blood 09/10/2024 3 :30 PM DISTRIBUTOR SALES CONSULTANT Fay ALBA POINT OF CARE TEST ORDERAB LES Edited Result - Final [facility] [address] [facility] [facility] [address] [place] [address] * (ABNORMAL) Comprehensive metabolic panel (06/15/2024 8:52 AM CDT) [facility] Glucose 138(H) 65 - 99 mg/dL [facility] [...] 06/16/2024 2:33 AM CDT FASTING:YES FASTING: YES Fay ALBA LAB BLOOD ORDERABLES Final Result [facility] [address] [place] [address] * Albumin Creatinine Ratio, Urine (10/26/2023 12:00 PM DISTRIBUTOR SALES CONSULTANT) Creatinine, ur 151 20 - 320 mg/dL [...] diagnostic category. Urine 10/26/2023 12:0 0 PM DISTRIBUTOR SALES CONSULTANT 10/26/2023 12:01 PM DISTRIBUTOR SALES CONSULTANT Narrative [facility] - 10/27/2023 1:07 PM DISTRIBUTOR SALES CONSULTANT FASTING:YES FASTING: YES Fay ALBA LAB URINE ORDERABLES Final Result Performing Organization Address City/State/ZIP [place] Phone Number [facility] [address] [place] [address] * COLONOSCOPY (09/23/2023 10:37 AM DISTRIBUTOR SALES CONSULTANT) Anatomical Region Laterality Modality Other Narrative Procedure Note Brandon Green MD - 09/23/2023 10:37 AM CST [facility] GI ENDOSCOPY Patient Name: Sukhi Blanchard Procedure Date: 09/23/2023 10:37 AM Date of : 1975 Admit Type: Outpatient Age: 48 Gender: Male Attending MD: Brandon Green M.D. Room: [facility] ENDOSCOPY ROOM 06 Note Status: Finalized Procedure: Colonoscopy Indications: High risk colon cancer surveillance: Personalhistory of colonic polyps, Family history of colon polyp Referring MD: Patricio Greenfield, F.N.P. Providers: Brandon Green M.D. Medicines: Monitored Anesthesia [...] The scope was passed under direct vision.The [id number]-[id number] colonoscope was introduced through theanus and advanced [...] On: 09/23/2023 10:37 AM Recognized by the [employer] for promoting quality in endoscopy Brandon Green MD ENDOSCOPY PROCEDURES Final Resul t from Last 3 Months or Most Recently Relevant to Health Maintenance [facility] H[facility] O Care Teams Resident Hall Director Relationship Specialty Start Date End Date Fay Vasquez PA [address] [facility] [address] [place] [address] PCP - General Internal Medicine 09/11/19 Cathleen Lacey PA [address] [place] [address] [address] [place] [address] Physician Stove Polisher Orthopedic Surgery 05/05/23
--- OUTSIDE RECORDS SUMMARY | 2025-01-02 15:47 | XMS_ITS | Encounter Summary ---
Author Organization [employer] Address 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
--- OUTSIDE RECORDS SUMMARY | 2025-01-02 15:47 | XMS_ITS | Clinical Summary ---
Author Organization [employer] [facility] Address [address] [place] [address] Phone Care Team Providers Care Bean Picker Name Role Phone Sloan Corbett MD Primary Care Provider [phone] Allergies Active Allergy Reactions Criticality Noted Date Comments Amoxicillin-Pot Clavulanate Hives,Swelling High 11/27 Cefaclor Hives,Swelling High 12/11/2012 Erythromycin Hives,Swelling High 12/11/2012 Medications montelukast (SINGULAIR) 10 mg tablet Take 10 mg by mouth daily at bedtime. Active fluticasone (FLONASE) 50 mcg/spray [place], Suspension Administer 2 Sprays in each nostril daily. Active amitriptyline (ELAVIL) 25 mg tablet Take 25 mg by mouth daily at bedtime. Active loratadine (CLARITIN) 10 mg tablet Take 10 mg by mouth daily. Active galcanezumab-gn lm (EMGALITY PEN SUBCUT) Inject by subcutaneous injection. Active rizatriptan benzoate (MAXALT ORAL) Take by mouth. A ctive SUMAtriptan (IMITREX) 25 mg tablet Take 25 mg by mouth every 2 hours as needed for Other (See Comment). may repeat in 2 hours; max dose 200mg in 24 hours Active hydrocortisone acetate (ANUSOL-HC) 25 mg Suppository Insert 1 Suppository (25 mg) by rectum 2 times daily. 14 Suppository 1 10/05/19 20 Active Active Problems Problem Noted Date Diagnosed Date FH: colon cancer 02/09/2013 Personal history of colonic polyps 02/09/2013 Overview (02/14/2018): 02/10/18- Colonoscopy- hyperplastic rectal polyp removed. Repeat 5 years (+FH). 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 Gender Identity Not on file Sexual Orientation Not on file Occupation Industry Job Start Date Job End Date Not on file Not on file Not on file Not on file Last Filed Vital Signs Vital Sign Reading Time Taken Comments Blood Pressure 143/87 10/05/2019 12:42 PM DEMO COORDINATOR Pulse 97 10/05/2019 12:42 PM DEMO COORDINATOR Temperature 36.2 C (97.1 F) 02/10/2018 10:14 AM CDT Respiratory Rate 18 02/10/2018 10:35 AM CDT Oxygen Saturation 99% 02/10/2018 10:35 AM CDT Inhaled Oxygen Concentration - - Weight 124.7 kg (275 lb) 07/17/2020 2:10 PM DEMO COORDINATOR Height 175.3 cm (5' 9 ) 07/17/2020 2:10 PM DEMO COORDINATOR Body Mass Index 40.61 07/17/2020 2:10 PM DEMO COORDINATOR Plan of Treatment Health Maintenance Due Date Last Done Comments HEPATITIS B VACCINES (1 of 3 - 19+ 3-dose series) 1996 FIT-DNA Q 3 years 2022 FIT/FOBT Q 1 year 2022 Flex Sig/CT Colonography Q 5 years 2022 COLORECTAL SCREENING 02/10/2023 02/10/2018, 02/10/2018, 02/09/2013, Additional history exists Colorectal Cancer Screening 02/10/2023 INFLUENZA VACCINE (#1) 2024 06/09/2020 DTAP/TDAP/TD VACCINES (2 - T d or Tdap) 09/26/2029 09/26/2019 Procedures Procedure Name Priority Date/Time Associated Diagnosis Comments COLONOSCOPY REPORT 02/10/2018 10 :16 AM CDT from Last 3 Months or Most Recently Relevant to Health Maintenance Results * COLONOSCOPY REPORT (02/10/2018 10:16 AM CDT) Narrative Procedure Note Jitendra Ji MD - 02/10/2018 10:15 AM CDT [facility] Endoscopy Patient Name: Sukhi Blanchard Procedure Date: 02/10/2018 Date of : 1975 Admit Type: Outpatient Attending MD: Jitendra Ji MD Procedure: Colonoscopy Indications: Increased risk colon cancer surveillance: personal history of colonic polyps, family history of colon cancer Providers: Jitendra Ji MD Referring MD: Sloan Corbett MD Medicines: Monitored Anesthesia Care Complications: No immediate complications. Procedure: Informed consent was obtained for the procedure, including moderate sedation after risks were discussed. Based on the pre-procedure assessment, including review of the patient's medical history, medications, allergies, and review of systems, the patient was deemed to be an appropriate candidate for sedation. A timeout was performed. Continuous ECG monitoring, pulse oximetry, blood pressure monitoring, and direct observation were performed. The colonoscope was introduced through the anus and advanced to the cecum, identified by appendiceal orifice and ileocecal valve. The colonoscopy was performed with ease. The patient tolerated the procedure well. The quality of the bowel preparation was excellent. Estimated Blood Loss: None. Findings: Small internal hemorrhoids were found during retroflexion. A 3 mm polyp was found in the rectum. The polyp was pedunculated. The polyp was removed with a cold snare. Resection and retrieval were complete. The examination was otherwise negative with no additional polyps seen. The cecum and ileocecal valve were normal. Impression: - Small internal hemorrhoids. - One 3 mm polyp in the rectum, removed with a cold snare. Resected and retrieved. Recommendation: - Await pathology results. - Repeat colonoscopy in 5 years for screening purposes. Jitendra Ji MD 02/10/2018 10:15:07 AM This report has been signed electronically. Number of Addenda: [address]; [place] [address] Jitendra Ji MD GI PROCEDURE ORDERABLES Final Re sult from Last 3 Months or Most Recently Relevant to Health Maintenance Insurance [employer] CHOICE POS II Advance Directives For more information, please contact: [phone] * Full Code (Latest Code Status on File) Date Activated Date Inactivated Comments 02/09/2013 7:56 AM 02/09/2013 11:51 AM Care Teams Bean Picker Relationship Specialty Start Date End Date Sloan Corbett MD [address] [facility] [address] [place] [address] PCP - General Family Practice 12/22/17
--- OUTSIDE RECORDS SUMMARY | 2025-01-02 15:47 | XMS_ITS | Encounter Summary ---
Author Organization [facility] Address [address] [place] [address] Care Team Providers Care Cloth Bleaching Range Operator Chief Name Role Phone Fay Vasquez Primary Care Provider [phone] Cathleen Lacey Unavailable [phone] Reason for Referral * MRI/CAT/PET Scan (Routine) - Closed Specialty Diagnoses / Procedures Referred By Contkayla t Referred To Contact Diagnoses LUQ abdominal pain LLQ pain Procedures CT Abdomen Pelvis W Contrast Fay Vasquez PA [address] [facility] [address] [place] [address] Phone: tel: fax: External Order Referral ID Status Reason Start Date Expiration Date Visits Re quested Visits Authorized [id number] Closed 01/02/2025 02/01/2026 1 1 Reason for Visit * Reason Comments Pain Pain in left side ri bcage around towards the back . Also having diarrhea. The pain started mid November, and the diarrhea has been off and on since around the same time. Encounter Details Date Type Department Care Team (Latest Contact Info) Description 01/02/2025 1:30 PM CDT Office Visit [facility] Family Medicine [address] [facility] [place] [address] Fay Vasquez PA [address] [place] [address] LUQ abdominal pain (Primary Dx); LLQ pain; Left flank pain; Type 2 diabetes mellitus with hyperlipidemia (HCC); Fatigue, unspecified type; Screening cholesterol level; BMI 38.0-38.9,adult Social History Tobacco Use Types Packs/Day Years Used Date Smoking Tobacco: Never Passive Smoke Exposure: Never Smokeless Tobacco: Never Alcohol Use Standard Drinks/Week Comments [...] on file 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 Gender Identity Not on file Sexual Orientation Straight 09/24/2020 8: 59 PM 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 Not on file Not on file Not on file documented as of this encounter Last Filed Vital Signs Vital Sign Reading Time Taken Comments Blood Pressure 144/98 01/02/2025 1:21 PM CDT Pulse 96 01/02/2025 1:21 PM CDT Temperature 37.2 C (99 F) 01/02/2025 1:21 PM CDT Respiratory Rate - - Oxygen Saturation 97% 01/02/2025 1:21 PM CDT Inhaled Oxygen Concentration - - Weight 117 kg (258 lb) 01/02/2025 1:21 PM CDT Height 175.3 cm (5' 9 ) 01/02/2025 1:21 PM CDT Body Mass Index 38.1 01/02/2025 1:21 PM CDT documented in this encounter Functional Status * Audit-C Score Answer Date of Assessment Author 0 01/02/2025 1:22 PM CDT Beatriz Martinez MA * Question Answer Date of Assessment Author Q1: How often do you have a drink containing alcohol? Never 01/02/2025 1:22 PM CDT Bettina Martinez M A Q2: How many drinks containing alcohol do you have on a typical day when you are drinking? Patient does not drink 01/02/2025 1:22 PM CDT Bettina Martinez MA Q3: How often do you have six or more drinks on one occasion? Never 01/02/2025 1:22 PM CDT Bettina Martinez M A documented as of this encounter Miscellaneous Notes * Assessment & Plan Note - Minoo Hernandez - 01/02/2025 3:41 PM CDT Associated Problem(s): Left flank pain UA showed trace blood in urine. Will culture to evaluate for infection. * Assessment & Plan Note - Minoo Hernandez - 01/02/2025 3:40 PM CDT Associated Problem(s): LLQ pain Presents with two distinct episodes of LUQ abdominal pain radiating to the back with associated left CVA tenderness and watery diarrhea. He is tender along the LLQ and LUQ and epigastric areas with referred pain going into the RLQ. Denies alcohol use and still has his gallbladder. No fevers, chills, nausea or anorexia. Differential diagnosis includes diverticulitis, pancreatitis from GLP- 1 use, kidney stone (trace blood in his urine) or musculoskeletal cause. Will plan to get STAT CT scan of abdomen/pelvis. * Assessment & Plan Note - Minoo Hernandez - 01/02/2025 3:38 PM CDT Associated Problem(s): LUQ abdominal pain Presents with two distinct episodes of LUQ abdominal pain radiating to the back with associated left CVA tenderness and watery diarrhea. He is tender along the LLQ and LUQ and epigastric areas with referred pain going into the RLQ. Denies alcohol use and still has his gallbladder. No fevers, chills, nausea or anorexia. Differential diagnosis includes diverticulitis, pancreatitis from GLP- 1 use, kidney stone (trace blood in his urine) or musculoskeletal cause. Will plan to get STAT CT scan of abdomen/pelvis. * Assessment & Plan Note - Bettina Martinez MA - 01/02/2025 1:23 PM CDTAssociated Problem(s): BMI 38.0-38.9,adult Discussed the patient's BMI. The BMI is above average. BMI management plan is completed. BMI Follow-up includes: nutrition counseling, exercise counseling and education provided. documented in this encounter Plan of Treatment Scheduled Orders Name Type Priority Associated Diagnoses Orde r Schedule CT Abdomen Pelvis W Contrast Imaging Schedule ANSHU, Read ANSHU (Appt Today, Awaiting Results) LUQ abdominal pain LLQ pain Expected: 01/02/2025, Expires: 01/02/2026 CBC with auto differential Lab Routine LUQ abdominal pain Expected: 01/02/2025, Expires: 01/02/2026 Comprehensive metabolic panel Lab Routine LUQ abdominal pain Expected: 01/02/2025, Expires: 01/02/2026 Lipase Lab Routine LUQ abdominal pain Expected: 01/05/2025, Expires: 01/02/2026 Amylase Lab Routine LUQ abdominal pain Expected: 01/05/2025, Expires: 01/02/2026 Hemoglobin A1c Lab Routine Type 2 diabetes mellitus with hyperlipidemia (HCC) Expected: 01/02/2025, Expires: 01/02/2026 Lipid panel Lab Routine Screening cholesterol level Expected: 01/02/2025, Expires: 01/02/2026 Albumin Creatinine Ratio, Urine Lab Routine Type 2 diabetes mellitus with hyperlipidemia (HCC) Expected: 01/02/2025, Expires: 01/02/2026 TSH Lab Routine Fatigue, unspecified type Expected: 01/02/2025, Expires: 01/02/2026 Urine culture Urine, clean voided Microbiology Routine Left flank pain Expected: 01/02/2025, Expires: 01/02/2026 documented as of this encounter Procedures Procedure Name Priority Date/Time Associated Diagnosis Comments POCT URINALYSIS DIPSTICK Routine 01/02/2025 2:55 PM CDT Left flank pain documented in this encounter Results * (ABNORMAL) POCT urinalysis dipstick (01/02/2025 2:55 PM CDT) Glucose, ur, POC 500.(A) Negative Bilirubin, ur, POC Negative Negative Ketones, ur, POC Negative Negative Specific [place], POC 1.025 1.003 - 1.030 Blood, ur, POC Trace(A) Negative pH, ur, POC 5.5 5.0 - 8.0 Protein, ur, POC Negative Negative Urobilinogen, urine, POC 0.2 0.2 - 1.0 mg/dL Nitrite, ur, POC Negative Negative Leukocytes, ur, POC Negative Negative Lot Number [id number] Urine 01/02/2025 2:55 PM CDT Fay ALBA POINT OF CARE TEST ORDERAB LES Edited Result - Final documented in this encounter Visit Diagnoses Diagnosis LUQ abdominal pain- Primary Abdominal pain, left upper quadrant LLQ pain Abdominal pain, left lower quadrant Left flank pain Abdominal pain, unspecified site Type 2 diabetes mellitus with hyperlipidemia (HCC) Fatigue, unspecified type Screening cholesterol level Screening for lipoid disorders BMI 38.0-38.9,adult documented in this encounter Care Teams Cloth Bleaching Range Operator Chief Relationship Specialty Start Date End Date Fay Vasquez PA [address] [place] [address] PCP - General Internal Medicine 09/11/19 Cathleen Lacey PA [address] [place] [address] Physician Price Lister Orthopedic Surgery 05/05/23 documented as of this encounter
--- OUTSIDE RECORDS SUMMARY | 2025-01-02 15:47 | XMS_ITS | Encounter Summary ---
Author Organization [facility] Address 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
--- OUTSIDE RECORDS SUMMARY | 2025-01-02 15:47 | XMS_ITS | Clinical Summary ---
Author Organization [facility] Address [address] [place] [address] Care Team Providers Care Carpenter'S Helper Name Role Phone Unavailable Primary Care Provider Unavailabl e Source Comments [facility],non-owned Affiliates and Associated Physician Practices is amultiple site organization consisting of ambulatory clinics and hospital sitesin [place], [place], [place]. This disclosure is being madepursuant to the Care Everywhere program and may not contain all information available regarding this patient. 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 Gender Identity Not on file Sexual Orientation Not on file Plan of Treatment Health Maintenance Due Date Last Done Comments COLOGUARD (AGES 45-75) - COL ON CA SCREENING 1975 COLON MONITORING 1977 COLONOSCOPY - COLON CA SCREENING 1977 CT COLONOGRAPHY - COLON CA SCREENING 1975 Colorectal Cancer Screening 1977 FIT - COLON CA SCREENING 1977 FLEX SIG - COLON CA SCREENING 1977 LIPID TESTING 1977 HIV SCREENING 1992 HEPATITIS C SCREENING 05/03/1995 DTAP/TDAP/TD VACCINES (1 - Tdap) 1996 HEPATITIS B VACCINE (1 of 3 - 19+ 3-dose series) 1996 COVID-19 VACCINE ( - 2023-2 5 season) 2024 DEPRESSION SCREENING 08/29/2024 INFLUENZA VACCINE (Season Ended) 2025 ZOSTER VACCINE (1 of 2) 2027 HIB VACCINE Aged Out No longer eligi ble based on patient's age to complete this topic HPV VACCINE Aged Out No longer eligi ble based on patient's age to complete this topic MENINGOCOCCAL (Group B) VACC INE SHARED DECISION-MAKING Aged Out No longer eligibl e based on patient's age to complete this topic MENINGOCOCCAL GROUPS A/C/Y/W VACCINE Aged Out No longer eligible b ased on patient's age to complete this topic PNEUMOCOCCAL VACCINE Aged Out No long er eligible based on patient's age to complete this topic Insurance [employer]
[2025-01-02 16:10] LABS: Estimated Glomerular Filt Rate 54
== END 2025-01-02 15:43 | disposition home or self-care (01) ==
PROVIDERS: PCP Physician Assistant; Visit Provider Physician Assistant
DX: N20.0 Calculus of kidney (principal); J90 Pleural effusion, not elsewhere classified
CPT/HCPCS: 74177; Q9967

== ENCOUNTER 2025-01-03 11:14 | Outpatient (CLI) | payer OTHER, SELFPAY ==
--- NOTE | ~2025-01-03 | XR_ITS ---
Clinical Indication: Pleural effusion PA and lateral views of the chest: Comparison: 06/27/2020 Findings: The lungs are clear, without evidence of focal consolidation or pleural effusion. Cardiome diastinal silhouette is within normal limits. Bones and soft tissues are unremarkable. Impression: Normal chest. Reviewed, dictated and finalized at location . Impression: Normal chest.
== END 2025-01-03 11:15 | disposition home or self-care (01) ==
LOC: MICIMG 11:15
PROVIDERS: PCP Physician Assistant; Visit Provider Physician Assistant
DX: J90 Pleural effusion, not elsewhere classified (principal)
CPT/HCPCS: 71046